=== PATIENT | male | born 1945 | race Caucasian/White ===

== ENCOUNTER 2016-12-12 21:40 | Inpatient (IN) ==
--- NOTE | 2016-12-12 22:03 | Emergency Department Note ---
Disposition Clinical Impression: Metastatic primary lung cancer, Failure to thrive Disposition: Admitted As Inpatient Condition: Good General Adult HPI - General Chief complaint: ED Shortness of Breath/Dyspnea Stated complaint: SOB,nausea,vomiting Time Seen by Provider: 12/12/16 21:53 Source: patient Limitations: no limitations - History of Present Illness Pain Scale: 6 - Related Data Home Medications Medication Instructions Recorded Confirmed Dronabinol [Marinol] 5 mg PO BID 12/13/16 12/13/16 HYDROcodone/Acet 10/325 mg [[place] 1 - 2 tab PO Q6HR PRN 12/13/16 12/13/16 10-325 mg] Ipratropium Neb [Atrovent Neb] 0.5 mg IH TID 12/13/16 12/13/16 Ondansetron [Zofran ODT] 6 mg SL Q4HR PRN 12/13/16 12/13/16 Allergies Allergy/AdvReac Type Severity Reaction Status Date / Time aspirin [From Percodan] Allergy Hallucinati Verified 12/12/16 21:42 ng Oxycodone [From Percocet] Allergy Hallucinati Verified 12/12/16 21:42 ng Past Medical History - Past Medical History Medical history: Reports: arthritis, cancer, COPD, other Surgical history: Reports: appendectomy, cataract, cholecystectomy Psychiatric history: Reports: no psych history - Social History Smoking Status: Former smoker Smokeless Tobacco Status: No Alcohol use: Reports: none Drug use: Reports: none Physical Exam - General Limitations: no limitations General appearance: alert, in no apparent distress Course Vital Signs Temperature 98.3 F 12/12/16 21:43 Pulse Rate 106 12/12/16 21:43 Respiratory Rate 18 12/12/16 21:43 Blood Pressure 106/68 12/12/16 21:43 O2 Sat by Pulse Oximetry 95 12/12/16 21:43 Temperature 98 F 12/13/16 01:15 Pulse Rate 76 12/13/16 01:15 Respiratory Rate 16 12/13/16 01:15 Blood Pressure 109/70 12/13/16 01:15 O2 Sat by Pulse Oximetry 95 12/13/16 02:00 Oxygen Delivery Oxygen Delivery Room Air Medical Decision Making - Lab Data Result diagrams: 12/12/16 22:10 12/12/16 22:10 Lab Results 12/12/16 12/12/16 Range/Units 22:10 22:10 WBC 8.0 (4.3-11.1) K/mcL RBC 4.65 (4.19-5.50) M/mcL Hgb 13.2 (12.9-16.9) g/dL Hct 40.8 (37.5-50.1) % MCV 87.7 (83.0-100.0) fL MCH 28.4 (28.0-33.3) pg MCHC 32.4 (31.6-35.5) g/dL RDW 13.5 (11.5-14.5) % Plt Count 195 (140-400) K/mcL MPV 10.5 (9.4-12.4) fL Immature Gran % 0.3 (0-4) % Seg Neutrophils % 81.1 % Lymphocytes % 8.4 % Monocytes % 8.8 % Eosinophils % 1.1 % Basophils % 0.3 % Neutrophils # 6.5 (1.6-8.9) K/mcL Lymphocytes # 0.7 (0.6-4.6) K/mcL Monocytes # 0.7 (0.0-1.3) K/mcL Eosinophils # 0.1 (0.0-0.6) K/mcL Basophils # 0.0 (0.0-0.2) K/mcL Sodium 139 (136-145) mEq/L Potassium 4.0 (3.5-4.5) mEq/L Chloride 101 (98-109) mEq/L Carbon Dioxide 29 (19-29) mEq/L BUN 33 H (8-26) mg/dL Creatinine 0.66 L (0.72-1.25) mg/dL Est GFR ( Amer) > 60 (> 60) Est GFR (Non-Af Amer) > 60 (> 60) BUN/Creatinine Ratio 50 H (6-26) Glucose 114 H (70-99) mg/dL Calculated Osmolality 296 (280-300) Calcium 9.7 (8.6-10.8) mg/dL Total Bilirubin 0.7 (0.2-1.2) mg/dL Direct Bilirubin 0.3 (0.0-0.5) mg/dL Indirect Bilirubin 0.4 (0.0-1.2) mg/dL AST 27 (5-34) Units/L ALT 30 (0-55) Units/L Alkaline Phosphatase 207 H (38-126) Units/L Serum Total Protein 7.4 (6.0-8.3) g/dL Albumin 3.4 L (3.5-5.0) g/dL Globulin 4.0 H (2.4-3.5) g/dL Albumin/Globulin Ratio 0.9 L (1.1-2.2) Lipase 64 (8-78) Units/L Attestation Statement - Attestation Attestation: I examined this patient and my medical decision-making was reviewed with the GOVERNMENT SERVICES PROFESSIONAL/PA/Advanced Practice Nurse/Resident Physician. I agree with the documented findings, disposition and treatment plan as described except to the extent set forth below. Face to face time provided Patient with a history of metastatic lung cancer currently taking Keytruda but not getting active chemotherapy presents with nausea, vomiting, dietary intolerance over the past several days. He appears thin and pale on exam
[2016-12-12] MEDS ORDERED: *HR* HYDROmorphone (PF) 1 MG/ML SYRINGE IVP ONE (22:11)
[2016-12-12] MEDS ORDERED: Ondansetron 4 MG/2 ML VIAL IVP ONE (22:11)
[2016-12-12] MEDS ORDERED: 0.9 % Sodium Chloride 1,000 ML IVC ONE (22:11)
--- NOTE | 2016-12-12 22:19 | Emergency Department Note ---
Disposition Clinical Impression: Metastatic primary lung cancer Qualifiers: Laterality: unspecified laterality Qualified Code(s): C34.90 - Malignant neoplasm of unspecified part of unspecified bronchus or lung Failure to thrive Qualifiers: Failure to thrive age range: in adult Qualified Code(s): R62.7 - Adult failure to thrive Disposition: Admitted As Inpatient Condition: Good Forms: ED Satisfaction Letter Nausea/Vomiting/Diarrhea HPI - General Chief complaint: ED Shortness of Breath/Dyspnea Stated complaint: SOB,nausea,vomiting Time Seen by Provider: 12/12/16 21:53 Source: patient Limitations: no limitations Nursing Notes Reviewed: Yes Vital Signs Reviewed: Yes - History of Present Illness HPI Narrative: 71-year-old male with a history of metastatic lung cancer presents to the ED with the chief complaint of nausea and vomiting. In July 2016 he was diagnosed with a right upper lobe cancer and a resection was performed. Just a few weeks after the surgery they found that the tumor had returned and had metastasized to the other lung for which she had a number resection. He is recently found that the cancer has metastasized into the pelvis and throughout the spine. Patient has dealt with nausea, vomiting and cachexia for the duration of his treatment. He has had worsening symptoms over the last 10 days and has not been able to keep down much nutrition. He denies any abdominal pain just nausea, vomiting and decreased appetite. He feels generally weak. He denies any new dyspnea. He denies any fevers or chills. He denies any chest pain. He reports having palpitations about a week ago but was not evaluated by a physician at that time. - Related Data Home Medications Medication Instructions Recorded Confirmed Ipratropium Neb [Atrovent Neb] 0.5 mg IH TID 10/17/16 11/20/16 Previous Rx's Medication Instructions Recorded HYDROcodone/Acet 10/325 mg [[place] 1 - 2 tab PO Q6HR PRN #90 tablet 11/27/16 10-325 mg] MethylPREDNISolone 4 mg PO DAILY #21 tab 11/30/16 [MethylPREDNISolone Dose Pack] Ondansetron [Zofran ODT] 8 mg SL Q4HR PRN #30 tab.rapdis 12/10/16 Oxycodone HCl 15 mg PO Q2H PRN #90 tablet 12/10/16 Allergies Allergy/AdvReac Type Severity Reaction Status Date / Time aspirin [From Percodan] Allergy Hallucinati Verified 12/12/16 21:42 ng Oxycodone [From Percocet] Allergy Hallucinati Verified 12/12/16 21:42 ng All systems ED: reviewed and negative except as stated. Constitutional: Denies: fever, chills Cardiovascular: Denies: chest pain Gastrointestinal: Reports: nausea, vomiting. Denies: abdominal pain, diarrhea, hematochezia Genitourinary: Denies: urgency, dysuria Musculoskeletal: Reports: back pain (Chronic with no recent change) Neurological: Reports: weakness (Generalized and not unilateral). Denies: headache Past Medical History - Past Medical History Medical history: Reports: arthritis, cancer, COPD, other Surgical history: Reports: appendectomy, cataract, cholecystectomy Psychiatric history: Reports: no psych history - Social History Smoking Status: Former smoker Smokeless Tobacco Status: No Alcohol use: Reports: none Drug use: Reports: none Physical Exam General: Cachectic appearing male but he is awake, alert, talkative and in no distress Cardiovascular: Regular rate and rhythm. S1, S2. No murmurs, rubs or gallops. Respiratory: Breath sounds are clear bilaterally without any wheezing, rales or rhonchi. He is speaking in full sentences and in no distress. No coughing. Abdomen: Abdomen is soft without guarding, rebound or rigidity. No palpable organomegaly. Normal bowel sounds throughout. No palpable hernias or masses. Eyes: Conjunctiva clear without scleral icterus HENT: Mucous membranes are slightly dry but no abnormal lesions. Neuro: He is alert and oriented 3, no motor or sensory deficits Musculoskeletal: No joint tenderness or swelling. No edema. Skin: No lesions. No diaphoresis. Normal turgor. Normal color Psych: Appropriate - General Limitations: no limitations General appearance: alert, in no apparent distress Course Course Narrative: Presents with worsening nausea, vomiting and poor nutrition. Patient has a history of metastatic lung cancer. No chemotherapy but palliative radiation. He has had no fevers, increased pain but just states his vomiting is getting worse and he feels generally weak. On exam his abdomen is soft. He is afebrile and in no distress. He appears chronically cachectic and ill. Labs including CBC, CMP, lipase are essentially unremarkable. No leukocytosis, no fever or anything to suggest infection. His BUN is elevated suggesting dehydration and he was given fluids, IV pain medication and nausea medication. Patient is feeling better but states he is too weak to go home and his confirms this. He would like to stay in the hospital for IV hydration and further discussion with the oncologist. I discussed with the on-call hospitalist, Dr. Ojeda who except for admission, no further orders at this time Patient denies any new abdominal pain. No fevers and this has bee an ongoing issue.n He had a PET scan of his chest, abdomen pelvis about a month ago where a produce department manager CT was performed and it showed some new lymph nodes involved in the pelvis but no other abnormalities. For this reason we did not repeat CT imaging at this time Vital Signs Temperature 98.3 F 12/12/16 21:43 Pulse Rate 106 12/12/16 21:43 Respiratory Rate 18 12/12/16 21:43 Blood Pressure 106/68 12/12/16 21:43 O2 Sat by Pulse Oximetry 95 12/12/16 21:43 Temperature 98.3 F 12/12/16 21:43 Pulse Rate 90 12/12/16 23:25 Respiratory Rate 18 12/12/16 23:25 Blood Pressure 120/83 12/12/16 23:25 O2 Sat by Pulse Oximetry 95 12/12/16 23:25 Oxygen Delivery Oxygen Delivery Room Air Nausea/Vomiting/Diarrhea - Lab Data Result diagrams: 12/12/16 22:10 12/12/16 22:10 Lab Results 12/12/16 12/12/16 Range/Units 22:10 22:10 WBC 8.0 (4.3-11.1) K/mcL RBC 4.65 (4.19-5.50) M/mcL Hgb 13.2 (12.9-16.9) g/dL Hct 40.8 (37.5-50.1) % MCV 87.7 (83.0-100.0) fL MCH 28.4 (28.0-33.3) pg MCHC 32.4 (31.6-35.5) g/dL RDW 13.5 (11.5-14.5) % Plt Count 195 (140-400) K/mcL MPV 10.5 (9.4-12.4) fL Immature Gran % 0.3 (0-4) % Seg Neutrophils % 81.1 % Lymphocytes % 8.4 % Monocytes % 8.8 % Eosinophils % 1.1 % Basophils % 0.3 % Neutrophils # 6.5 (1.6-8.9) K/mcL Lymphocytes # 0.7 (0.6-4.6) K/mcL Monocytes # 0.7 (0.0-1.3) K/mcL Eosinophils # 0.1 (0.0-0.6) K/mcL Basophils # 0.0 (0.0-0.2) K/mcL Sodium 139 (136-145) mEq/L Potassium 4.0 (3.5-4.5) mEq/L Chloride 101 (98-109) mEq/L Carbon Dioxide 29 (19-29) mEq/L BUN 33 H (8-26) mg/dL Creatinine 0.66 L (0.72-1.25) mg/dL Est GFR ( Amer) > 60 (> 60) Est GFR (Non-Af Amer) > 60 (> 60) BUN/Creatinine Ratio 50 H (6-26) Glucose 114 H (70-99) mg/dL Calculated Osmolality 296 (280-300) Calcium 9.7 (8.6-10.8) mg/dL Total Bilirubin 0.7 (0.2-1.2) mg/dL Direct Bilirubin 0.3 (0.0-0.5) mg/dL Indirect Bilirubin 0.4 (0.0-1.2) mg/dL AST 27 (5-34) Units/L ALT 30 (0-55) Units/L Alkaline Phosphatase 207 H (38-126) Units/L Serum Total Protein 7.4 (6.0-8.3) g/dL Albumin 3.4 L (3.5-5.0) g/dL Globulin 4.0 H (2.4-3.5) g/dL Albumin/Globulin Ratio 0.9 L (1.1-2.2) Lipase 64 (8-78) Units/L
[2016-12-12 22:38] LABS: Basophils % 0.3 %; Eosinophils % 1.1 %; Hematocrit 40.8 % (37.5-50.1); Hemoglobin 13.2 g/dL (12.9-16.9); Immature Granulocytes % 0.3 % (0-4); Lymphocytes % 8.4 %; Mean Corpuscular HGB Conc 32.4 g/dL (31.6-35.5); Mean Corpuscular Hemoglobin 28.4 pg (28.0-33.3); Mean Corpuscular Volume 87.7 fL (83.0-100.0); Mean Platelet Volume 10.5 fL (9.4-12.4); Monocytes % 8.8 %; Platelet Count 195 K/mcL (140-400); Red Blood Count 4.65 M/mcL (4.19-5.50); Red Cell Distribution Width 13.5 % (11.5-14.5); Segmented Neutrophils % 81.1 %
[2016-12-12 22:39] LABS: Eosinophils # 0.1 K/mcL (0.0-0.6); Lymphocytes # 0.7 K/mcL (0.6-4.6); Monocytes # 0.7 K/mcL (0.0-1.3); Neutrophils # 6.5 K/mcL (1.6-8.9)
[2016-12-12 22:56] LABS: Alanine Aminotransferase 30 Units/L (0-55); Albumin 3.4 g/dL (3.5-5.0); Albumin/Globulin Ratio 0.9 (1.1-2.2); Alkaline Phosphatase 207 Units/L (38-126); Aspartate Amino Transferase 27 Units/L (5-34); BUN/Creatinine Ratio 50 (6-26); Bilirubin,Direct 0.3 mg/dL (0.0-0.5); Bilirubin,Indirect 0.4 mg/dL (0.0-1.2); Bilirubin,Total 0.7 mg/dL (0.2-1.2); Blood Urea Nitrogen 33 mg/dL (8-26); Calcium 9.7 mg/dL (8.6-10.8); Carbon Dioxide 29 mEq/L (19-29); Chloride 101 mEq/L (98-109); Glucose 114 mg/dL (70-99); Lipase 64 Units/L (8-78); Osmolality,Calculated 296 (280-300); Sodium 139 mEq/L (136-145); Total Protein 7.4 g/dL (6.0-8.3); eGFR For African Americans > 60 (> 60); eGFR For Non-African Americans > 60 (> 60)
--- NOTE | 2016-12-13 03:26 | Internal Med History&Physical ---
Date of Encounter: 12/13/16 Time of Encounter: 03:26 Assessment and Plan (1) Intractable nausea and vomiting Current visit: Yes Status: Acute Possibly related to metastatic tumor burden. Will obtain X-ray KUB to exclude bowel obstruction. Treat with antiemetics IV and IV fluids; IV PPI. Qualifiers: Vomiting type: unspecified Qualified Code(s): R11.2 - Nausea with vomiting , unspecified (2) Failure to thrive Current visit: Yes Status: Acute Pt apparently lost about 6 pounds recently. Likely due to inability to keep his food down. IV antiemetics. Oncology consult / Nutrition consult. Qualifiers: Failure to thrive age range: in adult Qualified Code(s): R62.7 - Adult failure to thrive (3) COPD (chronic obstructive pulmonary disease) Current visit: Yes Status: Chronic Continue bronchodilators Qualifiers: COPD type: unspecified COPD Qualified Code(s): J44.9 - Chronic obstructive pulmonary disease, unspecified (4) Metastatic primary lung cancer Current visit: Yes Status: Chronic Oncology consult for further advice. Qualifiers: Laterality: unspecified laterality Qualified Code(s): C34.90 - Malignant neoplasm of unspecified part of unspecified bronchus or lung Internal Medicine - H&P: HPI Chief complaint: Intractable Nausea, vomiting Admitted From: Emergency Dept Plans for Post Hospital Care: Home History of present illness: Mr. Benavidez is a 71 year old male With h/o lung cancer (poorly differentiated adenocarcinoma) s/p right upper lobectomy; Metastatic disease, COPD, back pain. He reports intermittent nausea and altered taste since the Jul 2016. He is worsening symptoms over the last several days, with intractable nausea and vomiting. He is not able to keep nausea medications, food or fluids. He denies hematemesis/coffee-ground vomiting. He denies significant abdominal pain. He reports that the taste of food is altered. He apparently lost 6 pounds weight in the last week. He denies a significant shortness of breath, chest pain, fever, chills, abdominal pain, dysuria, hematuria. He was evaluated in the emergency department and admitted to the hospitalist service for further management. Past Med Surg Social Fam HX - Past Medical History Medical history: arthritis, cancer, COPD, other Psychiatric history: no psych history - Past Surgical History Surgical History: appendectomy, cataract, cholecystectomy - Social History Smoking Status: Former smoker Smokeless Tobacco Status: No Alcohol use: none Drug use: none - Additional Family History Additional family history: Family history reviewed and is noncontributory to current admission Internal Medicine - H&P: Meds Dronabinol [Marinol] 5 mg PO BID 12/13/16 [History] HYDROcodone/Acet 10/325 mg [[place] 10-325 mg] 1 - 2 tab PO Q6HR PRN 12/13/16 [ History] Ipratropium Neb [Atrovent Neb] 0.5 mg IH TID 12/13/16 [History] Ondansetron [Zofran ODT] 6 mg SL Q4HR PRN 12/13/16 [History] Allergies aspirin [From Percodan] Allergy (Verified 12/12/16 21:42) Hallucinating Oxycodone [From Percocet] Allergy (Verified 12/12/16 21:42) Hallucinating All Systems PM: A 10-system review of systems was performed and is negative for pertinent findings except as documented above in the HPI. - Constitutional Vitals: Temp Pulse Resp BP Pulse Ox 98 F 76 16 109/70 95 12/13/16 01:15 12/13/16 01:15 12/13/16 01:15 12/13/16 01:15 12/13/16 01:15 Exam: General: Not in acute distress at the time of my evaluation HEENT: Oral mucosa is moist. No conjunctival palor or scleral icterus Neck: No obvious neck swellings Lungs: Clear to auscultation Cardiac: Regular rate and rhythm. No significant murmurs Abdomen: Soft, non tender. Bowel sounds present Genitourinary: No bah catheter Neurological: Alert and oriented. No gross localizing deficits Psych: Not aggressive or agitated Extremities: no significant leg edema Skin: No generalized rash Internal Med - H&P Results - Labs CBC & Chem 7: 12/12/16 22:10 12/12/16 22:10 - Impressions ITS Impressions Chest X-Ray 12/12/16 22:13 IMPRESSION: 1. No acute cardiopulmonary abnormality. 2. Stable right upper thoracic postsurgical changes. D/ / Tyron Maher MD / Tyron Maher MD Interpreting Provider: Tyron Maher MD
[2016-12-13] MEDS ORDERED: Ondansetron 4 MG/2 ML VIAL IVP PRN (03:28)
[2016-12-13] MEDS ORDERED: *HR* Promethazine 25 MG/ML VIAL IVP PRN ×2 (03:28→14:00)
[2016-12-13] MEDS ORDERED: Naloxone 0.4 MG/ML INJ IVP PRN (03:28)
[2016-12-13] MEDS: *HR* HYDROcodone/Acet 10/325 mg TABLET PO SCH ×5 (04:06→21:26)
[2016-12-13] MEDS: 0.9 % Sodium Chloride 1,000 ML IVC SCH ×2 (04:06→17:13)
[2016-12-13 06:40] LABS: BUN/Creatinine Ratio 48 (6-26); Blood Urea Nitrogen 30 mg/dL (8-26); Calcium 8.7 mg/dL (8.6-10.8); Carbon Dioxide 29 mEq/L (19-29); Chloride 103 mEq/L (98-109); Glucose 143 mg/dL (70-99); Osmolality,Calculated 293 (280-300); Phosphorous 2.2 mg/dL (2.3-4.7); Potassium 3.6 mEq/L (3.5-4.5); Sodium 137 mEq/L (136-145); eGFR For African Americans > 60 (> 60); eGFR For Non-African Americans > 60 (> 60)
[2016-12-13] MEDS: Pantoprazole 40 MG VIAL IVP SCH (08:07)
[2016-12-13] MEDS: Ipratropium Neb 0.5 MG NEBULIZER IH SCH ×3 (11:10→22:43)
--- NOTE | 2016-12-13 14:27 | Event Note ---
Date of Encounter: 12/13/16 Time of Encounter: 10:00 Patient seen and examined earlier this morning. His was at the bedside. Patient this morning stating that his pain was controlled. He stated that he continued to have nausea but was able to eat a little bit of his breakfast. Chest x-ray negative. KUB with focal ileus to left upper quadrant, we will treat conservatively. Hypotension noted. IV fluids infusing. We will schedule Reglan and diphenhydramine. Patient also complaining of his hands being intermittently numb that has gotten progressively worse over the past month or so, concern for vitamin deficiencies, will check B12, folate, TSH. Patient is on Marinol at home however he states he is not able to take it most days secondary to severe nausea and inability to take medications. His and he are quite upset regarding the fact that he has progressively lost weight since his diagnosis in [facility]. His states that he has lost approximately 6 pounds per month and is currently losing weight at a quicker rate than before. Patient stating he pretty much sleeps all the time because he cannot eat. He states that he feels as if he is going to throw up all the time. He states even someone mentioning food is enough to make him throw up. I discussed with him possible transdermal patches to help with pain control but patient stated he was not interested in trying these. I was called back to his room at approximately 1315 because the patient had slurred speech. On examination, patient was oriented 3 but would intermittently say inappropriate comments. His speech is slurred and he is slow to answer questions. Shortly before this started, patient had IV Phenergan and he appears quite drowsy. He has no focal neurological weaknesses. No suspicion for a stroke, he appears to be having a bit of a reaction to the Phenergan. We will decrease the dose-he will need to be dosed moving forward per body weight given that he is only 51 kg. Given his ileus, we will conservatively treat and monitor closely for signs of bowel obstruction. Will also consider NG tube placement for decompression. Oncology is on board. Nutrition is on board. Patient stating that he wanted to talk to me more about CODE STATUS however he was quite drowsy during my most recent encounter with him, so I will revisit this topic when he is more alert. I have brought palliative care on board given the fact that he has lost so much weight and is clearly failure to thrive. Appreciate their input. ITS Impressions Chest X-Ray 12/12/16 22:13 IMPRESSION: 1. No acute cardiopulmonary abnormality. 2. Stable right upper thoracic postsurgical changes. D/ / Tyron Maher MD / Tyron Maher MD Interpreting Provider: Tyron Maher MD X-Ray 12/13/16 06:32 IMPRESSION: Overall nonspecific bowel gas pattern with several mildly distended loops of small bowel within the left upper quadrant. This could represent a focal ileus. D/ / 12/13/2016 08:39:58 Fritz Villalobos MD / shonda Interpreting Provider: Fritz Villalobos MD
--- NOTE | 2016-12-13 14:53 | Electrocardiograph Report ---
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
--- NOTE | 2016-12-13 16:02 | Palliative - Consult Note ---
Date of Encounter: 12/13/16 Time of Encounter: 14:30 - Assessment and Plan (1) Cancer associated pain Current Visit: Yes Status: Acute Assessment and plan: The patient describes a great deal of this pain as being sharp burning type pain which is generally associated with neurogenic pain. The patient does have painful nodules from the metastases from his cancer. I believe there may be a very significant neurogenic component to the pain. I recommend continuing the patient's [place] as the patient is now taking by mouth, the patient has a very bad reaction oxycodone obviously avoid this. I would add in gabapentin and a Lidoderm patch. For the gabapentin and the Lidoderm patch. Although I do not believe the patient needs IV medication at this time I would give low-dose morphine he is unable to take by mouth and I will write for this as well. Discussed this with the hospitalist team. (2) Constipation Current Visit: Yes Status: Acute Assessment and plan: Bowel regimen has begun with senna S 2 twice a day. Qualifiers: Constipation type: slow transit constipation Qualified Code(s): K59.01 - Slow transit constipation (3) Goals of care, counseling/discussion Current Visit: Yes Status: Acute Assessment and plan: The patient requests to be DNR comfort care arrest. He is okay with short-term intubation and has discussed this with his who he nominate is his medical power of licensing officer. His goals of care are to continue therapy for his cancer. He is starting immunotherapy and is hopeful that this will work for him. He understands were hospice fits in the picture, and will avail himself of it at that point in time when he feels it is necessary. In the meantime the patient feels his nausea could be kept under decent control he would be able to enjoy his life much better. The patient is used to being extremely active helping other people with yard work and getting his yard taking care of for the last month month and a half this is been very difficult secondary to feeling very weak rundown and nauseated. (4) Intractable nausea and vomiting Current Visit: Yes Status: Acute Assessment and plan: He patient has responded extremely well to Phenergan, however he did have a very pronounced side effect of sedation from it. I recommend that we cut it back to a lower dose and have already discussed this with the hospitalist team. This will be made available on a when necessary basis, with the patient on scheduled Reglan with Benadryl and a low dose of Ativan. Purpose for the Reglan is to try to stimulate the bowel and get it moving into proper direction as well as decrease the nausea. Ativan is added in for cerebral fluence on the vomiting center to the fact the patient has a great deal of sensory nausea. Where the nausea and vomiting are triggered by sensory input. Asked for the Ativan to be held in the event of sedation. Discussed this also with the hospitalist team. Qualifiers: Vomiting type: unspecified Qualified Code(s): R11.2 - Nausea with vomiting , unspecified (5) Metastatic primary lung cancer Current Visit: Yes Status: Chronic Assessment and plan: The patient is currently getting therapy through the 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 for this and wishes to continue to do so. Qualifiers: Laterality: unspecified laterality Qualified Code(s): C34.90 - Malignant neoplasm of unspecified part of unspecified bronchus or lung Palliative-CN HPI - Data of Consult Patient: new to practice Requesting Physician: Rosa Peters Primary Care Provider: Wade Bull MD - Consult Narrative Palliative Care/Comfort Measures: Palliative care Reason for consult: Goals of care, CODE STATUS and assistance with symptom control specifically History of present illness: Mr. Benavidez is a 71 year old male Diagnosed with lung cancer in July of this year underwent surgery Remy however despite us if care right upper lobe lobectomy should has only metastatic cancer with a history of COPD as well as back pain. Cancer is poorly differentiated carcinoma. Patient has been noticing intermittent episodes of nausea and altered taste ever since the tumor was discovered. Of late he has been having a really hard time with nausea and vomiting. He states that different odors and even sights will set off his nausea. He is able to keep his meds down [place] associated with marijuana seems to help. (Of note dronabinol has not had the effect on him and that actual marijuana has had) he came in the emergency department complaining of nausea and vomiting without keeping anything down for approximately the last week. At any significant abdominal pain, although he does complain of a knot feeling in his belly. The patient does describe pain especially off nodules in his skin is being very burning, electric stabbing at times. At its worse it to 10 over 10 with people pressing on it or him being in certain positions sometimes positional change we will make a difference to it. The pain is worse around these cutaneous nodules. Again pain is very oftentimes burning or sharp and electric in nature. Believe by medication specifically [place] and marijuana. The patient is allergic to she code on which causes hallucinations. As already noted the patient is having a great deal of trouble with nausea and vomiting. He is also having trouble with constipation. Patient does have a good appetite, however this has been curbed by his nausea. As noted above. Patient has no other symptoms at this time. CC: Rosa Peters Nausea and vomiting Past Med Surg Social Fam HX - Past Medical History Medical history: arthritis, cancer, COPD, other Psychiatric history: no psych history - Past Surgical History Surgical History: appendectomy, cataract, cholecystectomy - Social History Smoking Status: Former smoker Smokeless Tobacco Status: No Alcohol use: none Drug use: none Medications and Allergies Dronabinol [Marinol] 5 mg PO BID 12/13/16 [History] HYDROcodone/Acet 10/325 mg [[place] 10-325 mg] 1 - 2 tab PO Q6HR PRN 12/13/16 [ History] Ipratropium Neb [Atrovent Neb] 0.5 mg IH TID 12/13/16 [History] Allergies aspirin [From Percodan] Allergy (Verified 12/12/16 21:42) Hallucinating Oxycodone [From Percocet] Allergy (Verified 12/12/16 21:42) Hallucinating - Constitutional Constitutional ROS PAL: decreased appetite (Secondary to nausea.), lethargy, weight loss - EENT Eyes: no discharge, no pain Ears: no ear discharge, no ear pain Ears, nose, mouth, throat: no mouth pain, no nasal congestion, no neck pain, no nose pain - Cardiovascular Cardiovascular ROS: no chest pain, no chest pain at rest, no chest pain with activity, no diaphoresis, no dyspnea on exertion - Respiratory Respiratory: no cough, no dyspnea, no hemoptysis - Gastrointestinal Gastrointestinal: constipation, nausea, vomiting, no diarrhea - Genitourinary Genitourinary ROS male: no urinary frequency, no urinary hesitancy, no urinary incontinence - Musculoskeletal Musculoskeletal ROS IM: arthralgias, back pain - Integumentary ROS Integumentary: skin pain, no skin ulcer, no sores - Neurological Neurological ROS: no behavioral changes, no burning sensations, no disequilibrium, no dizziness, no focal weakness - Psychiatric Psychiatric general PM: change in appetite, no homicidal ideation, no hopelessness, no suicidal ideation - Endocrine Endocrine IM: as per HPI, other Palliative Care-Exam - Constitutional Vitals: Temp Pulse Resp BP Pulse Ox 97.6 F 82 16 107/67 95 12/13/16 15:30 12/13/16 15:30 12/13/16 15:30 12/13/16 15:30 12/13/16 15:30 General appearance: Present: no acute distress, thin - Head Head Exam: Present: atraumatic, normal inspection - Eye Eye exam: Present: EOMI, normal appearance, PERRL - ENT ENT exam: Present: mucous membranes moist - Respiratory Respiratory exam: Present: decreased breath sounds - Cardiovascular Cardiovascular exam: Present: RRR - GI/Abdominal Exam GI/Abdominal exam: Present: normal bowel sounds, soft. Absent: tenderness - Extremities Exam Extremities exam: Present: normal inspection. Absent: pedal edema, tenderness - Neurological Exam Neurological exam: Present: alert, oriented X3 - Psychiatric Psychiatric exam: Present: normal affect, normal mood. Absent: agitated, anxious - Skin Skin exam: Present: dry, warm (Tender nodules noted on his back and side.) Internal Medicine - CN: Reslt - Labs CBC & Chem 7: 12/12/16 22:10 12/13/16 05:57 Labs: BMP 12/13/16 05:57 Sodium 137 Potassium 3.6 Chloride 103 Carbon Dioxide 29 BUN 30 H Creatinine 0.62 L Glucose 143 H Calcium 8.7 - Impressions Impressions KUB X-Ray 12/13/16 06:32 IMPRESSION: Overall nonspecific bowel gas pattern with several mildly distended loops of small bowel within the left upper quadrant. This could represent a focal ileus. D/ / 12/13/2016 08:39:58 Fritz Villalobos MD / [facility] [email or web address] Interpreting Provider: Fritz Villalobos MD Consult Discharge Plan - Plan Referrals: Wade Bull MD [Primary Care Provider] - Palliative Quality Palliative Quality: Screen for Code Status: Yes, Screen for Goals of Care: Yes, Screen for Pain: Yes, If Pain Regimen Started, Initiate Bowel Regimen: Yes, Screen for Nausea/Vomitting: Yes Code Status: 12/13/16 03:28 Resuscitation Status: Active [RES] Routine Comment: Resuscitation Status: Full Code Resuscitation Status: Active [RES] Routine Resuscitation Status: DNR-Comfort Care-Arrest Comment: short term tube, ok no trach or peg
[2016-12-13] MEDS: Metoclopramide 10 MG/2 ML VIAL IVP SCH (17:13)
--- NOTE | 2016-12-13 20:05 | Oncology Inp Consult Note ---
<Maryam Lujan E - Last Filed: 12/13/16 22:08> Date of Encounter: 12/13/16 Time of Encounter: 20:02 - Data of Consult Patient: known to practice within the last 3 years Consult date: 12/13/16 Requesting Physician: Rosa Peters Primary Care Provider: Wade Bull MD - Consult Narrative Reason for consult: lung cancer intractable nausea and vomiting History of present illness: Mr. Benavidez is a 71 year old male with a past medical history of recurrent metastatic lung cancer. He is currently being treated by Dr. Vigil. Most recently on 12/10/2016 he received Keytruda. From 11/27/2016 through 2016 he received radiation to the left sub-scapular and left upper back. His oncology history can be reviewed as per oncology clinic note of 11/20/2016. On 12/13/2016 he presented to the emergency room with intractable nausea and vomiting. He states that he has had episodes of nausea since his lung surgery but it has gradually worsening. His states he has not eaten to days. She felt like she was watching him before her eyes. Yesterday he was not able to keep anything down. He also states he felt like he had a knot in his stomach. he also has altered taste with the textures of foods also causing nausea. At this time nausea vomiting is being controlled with Phenergan, zofran, marinol and reglan. He is tolerating liquids. A KUB did indicate possible focal ileus. Past Med Surg Social Fam HX - Past Medical History Medical history: arthritis, cancer, COPD, other Psychiatric history: no psych history - Past Surgical History Surgical History: appendectomy, cataract, cholecystectomy - Social History Smoking Status: Former smoker Smokeless Tobacco Status: No Alcohol use: none Drug use: none Medications and Allergies Dronabinol [Marinol] 5 mg PO BID 12/13/16 [History] HYDROcodone/Acet 10/325 mg [[place] 10-325 mg] 1 - 2 tab PO Q6HR PRN 12/13/16 [ History] Ipratropium Neb [Atrovent Neb] 0.5 mg IH TID 12/13/16 [History] Allergies aspirin [From Percodan] Allergy (Verified 12/12/16 21:42) Hallucinating Oxycodone [From Percocet] Allergy (Verified 12/12/16 21:42) Hallucinating All systems: reviewed and no additional remarkable complaints except as stated Constitutional: Present: fatigue Additional comments: denies shortness of breath Additional comments: denies abdominal pain,bloating. Is passing gas,no nausea at this time Additional comments: soreness in lesion near cervical spine Oncology - Exam - Constitutional Vitals: Temp Pulse Resp BP Pulse Ox 98.1 F 80 16 95/52 95 12/13/16 19:27 12/13/16 19:27 12/13/16 19:27 12/13/16 19:27 12/13/16 19:27 General appearance: cooperative, thin - Head Head exam: Present: normocephalic - Neck Neck exam: Present: tenderness Additional comments: mass posterior neck - Respiratory Respiratory exam: Present: CTAB - Cardiovascular Cardiovascular exam: Present: RRR - GI/Abdominal GI/Abdominal exam: Present: soft Additional comments: nontenderness - Extremities Exam Extremities exam: Present: normal inspection - Back Exam Back exam: Present: vertebral tenderness (left upper thorax tenderness) - Psychiatric Psychiatric exam: Present: normal affect Oncology - Results - Labs Labs: [facility] 12/13/16 05:57 Sodium 137 Potassium 3.6 Chloride 103 Carbon Dioxide 29 BUN 30 H Creatinine 0.62 L Glucose 143 H Calcium 8.7 Consult Discharge Plan - Plan Referrals: Wade Bull MD [Primary Care Provider] - <Gerardo Vigil - Last Filed: 12/14/16 08:51> Date of Encounter: 12/14/16 - Data of Consult Requesting Physician: Rosa Peters Primary Care Provider: Wade Bull MD - Consult Narrative History of present illness: Mr. Benavidez is a 71 year old male Oncology - Exam - Constitutional Vitals: Temp Pulse Resp BP Pulse Ox 98.0 F 76 14 102/64 93 12/14/16 07:49 12/14/16 07:49 12/14/16 07:49 12/14/16 07:49 12/14/16 07:49 Oncology - Results - Labs Labs: [facility] 12/14/16 04:52 Sodium 138 Potassium 4.1 Chloride 105 Carbon Dioxide 25 BUN 15 D Creatinine 0.65 L Glucose 79 Calcium 9.0 - Attending Attestation I saw and personally examined Mr. Almeida at his bedside today and reviewed the chart for details of ongoing care by hospital team. I verified/agree with the history and physical exam findings documented by Delia Lujan CURBER above. Patient is currently hospitalist for uncontrolled pain and intractable nausea and vomiting due to his underlying malignancy. For his recurrent lung cancer: He is on immunotherapy with keytruda every 3 weeks and completed his first cycle of treatment about a week ago. We discussed options for management going forward and he now has a DNR status in place which I think is very reasonable given the incurable nature of his malignancy. He wants to continue antineoplastic therapy and reevaluate his option/decision based on his disease status. We'll plan on obtaining a response assessment imaging after 2 cycles of treatment. Palliative care is following for nausea and vomiting as well as uncontrolled pain. I reviewed Dr. Wilson's most recent office report and appreciate his input. Pain is controlled with his current regimen. He is not having any nausea or vomiting at time of that evaluation and is able to tolerate by mouth intake. KUB x-ray was some concern about focal ileus in left upper quadrant. This is being managed supportively with a bowel regimen. I think is very reasonable. We'll follow along with you while in-house and be happy to answer involvement oncologic questions that may arise. Once patient is medically optimal for discharge, we'll arrange for outpatient follow-up for ongoing management of his lung cancer. Thanks for allowing me to see the patient while in-house.
[2016-12-13] MEDS: Gabapentin 300 MG CAPSULE PO SCH (21:26)
[2016-12-13] MEDS: Sennosides/Docusate Sodium TABLET PO SCH (21:26)
[2016-12-13] MEDS: *HR* LORazepam 2 MG/ML VIAL IVP SCH (21:33)
[2016-12-14] MEDS: Metoclopramide 10 MG/2 ML VIAL IVP SCH ×5 (00:57→23:57)
[2016-12-14] MEDS: *HR* HYDROcodone/Acet 10/325 mg TABLET PO SCH ×2 (00:58→04:54)
[2016-12-14 05:30] LABS: % Iron Saturation 14 % (20-55); BUN/Creatinine Ratio 23 (6-26); Carbon Dioxide 25 mEq/L (19-29); Chloride 105 mEq/L (98-109); Glucose 79 mg/dL (70-99); Iron 30 mcg/dL (65-175); Osmolality,Calculated 286 (280-300); Potassium 4.1 mEq/L (3.5-4.5); Sodium 138 mEq/L (136-145); Transferrin 156 mg/dL (174-364); eGFR For African Americans > 60 (> 60); eGFR For Non-African Americans > 60 (> 60)
[2016-12-14 05:32] LABS: Blood Urea Nitrogen 15 mg/dL (8-26)
[2016-12-14 05:43] LABS: Ferritin 227 ng/ml (22-275)
[2016-12-14] MEDS: 0.9 % Sodium Chloride 1,000 ML IVC SCH ×2 (05:52→17:42)
[2016-12-14] MEDS: *HR* HYDROcodone/Acet 10/325 mg TABLET PO PRN ×2 (05:53→18:44)
[2016-12-14 05:59] LABS: Folate 8.9 ng/mL (7.0-31.4)
[2016-12-14 07:27] LABS: Thyroid Stimulating Hormone 0.257 mcIU/mL (0.350-4.840)
[2016-12-14] MEDS: Sennosides/Docusate Sodium TABLET PO SCH ×2 (07:37→20:59)
[2016-12-14] MEDS: Pantoprazole 40 MG VIAL IVP SCH (07:37)
[2016-12-14] MEDS: *HR* LORazepam 2 MG/ML VIAL IVP SCH ×3 (07:38→20:59)
[2016-12-14] MEDS: Ipratropium Neb 0.5 MG NEBULIZER IH SCH ×3 (10:20→20:27)
[2016-12-14 14:12] LABS: Triiodothyronine (T3) Free 2.37 pg/mL (1.71-3.71)
--- NOTE | 2016-12-14 17:17 | Palliative Progress Note ---
Date of Encounter: 12/14/16 Time of Encounter: 17:15 - Assessment and plan (1) Intractable nausea and vomiting Current Visit: Yes Status: Acute Assessment and plan: Patient now tolerating oral intake and medications. Continue with current treatment plan and transition to oral medications tomorrow. Qualifiers: Vomiting type: unspecified Qualified Code(s): R11.2 - Nausea with vomiting , unspecified (2) Cancer associated pain Current Visit: Yes Status: Acute Assessment and plan: Spouse reports improvement of pain and he is able to tolerate physical activity. Gabapentin improving neuropathic pain. (3) Constipation Current Visit: Yes Status: Acute Assessment and plan: Reglan for nausea. Senna BID. Qualifiers: Constipation type: slow transit constipation Qualified Code(s): K59.01 - Slow transit constipation (4) Metastatic primary lung cancer Current Visit: Yes Status: Chronic Qualifiers: Laterality: unspecified laterality Qualified Code(s): C34.90 - Malignant neoplasm of unspecified part of unspecified bronchus or lung - Time Spent With Patient Total time spent is greater than 50% in coordination of care (as documented) at patient's floor/unit and/or counseling patient: - Subjective Interval history: Patient resting with eyes closed. Spouse reports great improvement in nausea/ vomiting and he has been able to tolerate some food. - Constitutional Vitals: Abnormal lab results Creatinine 0.65 mg/dL (0.72-1.25) L 12/14/16 04:52 Phosphorus 2.2 mg/dL (2.3-4.7) L 12/13/16 05:57 Iron 30 mcg/dL (65-175) L 12/14/16 04:52 % Saturation 14 % (20-55) L 12/14/16 04:52 Transferrin 156 mg/dL (174-364) L 12/14/16 04:52 Alkaline Phosphatase 207 Units/L (38-126) H 12/12/16 22:10 Albumin 3.4 g/dL (3.5-5.0) L 12/12/16 22:10 Globulin 4.0 g/dL (2.4-3.5) H 12/12/16 22:10 Albumin/Globulin Ratio 0.9 (1.1-2.2) L 12/12/16 22:10 Prealbumin 13.0 mg/dL (18.0-45.0) L 12/14/16 04:52 TSH 0.257 mcIU/mL (0.350-4.840) L 12/14/16 04:52 Exam: 71 year old male, appearing chronically ill. - Respiratory Respiratory exam: Absent: accessory muscle use, respiratory distress - Extremities Exam Extremities exam: Present: normal inspection - Neurological Exam Neurological exam: Present: no focal deficits - Psychiatric Psychiatric exam: Absent: agitated, anxious - Skin Skin exam: Present: dry, warm Palliative Quality Palliative Quality: Screen for Code Status: Yes, Screen for Goals of Care: Yes, Screen for Pain: Yes, If Pain Regimen Started, Initiate Bowel Regimen: Yes, Screen for Nausea/Vomitting: Yes - Labs CBC & Chem 7: 12/12/16 22:10 12/14/16 04:52 Consult Discharge Plan - Plan Referrals: Wade Bull MD [Primary Care Provider] - 12/24/16 1:20 pm
--- NOTE | 2016-12-14 18:02 | Internal Med Progress Note ---
Date of Encounter: 12/14/16 Time of Encounter: 10:30 - Assessment and plan (1) Intractable nausea and vomiting Current Visit: Yes Status: Acute Assessment and plan: Patient's nausea and vomiting has been controlled since admission. He has responded well to Phenergan. His by mouth intake has improved drastically over the past couple days. His spirits are higher and he is less pale. Plan is to transition him over to by mouth medications over this weekend. He will need to have his nausea, vomiting, and pain controlled with by mouth medications before he can be discharged. Qualifiers: Vomiting type: unspecified Qualified Code(s): R11.2 - Nausea with vomiting , unspecified (2) Failure to thrive Current Visit: Yes Status: Acute Assessment and plan: See prior note for intractable nausea and vomiting (3) Metastatic primary lung cancer Current Visit: Yes Status: Chronic Assessment and plan: Oncology on board. Appreciate their recommendations. Focus at this time is on controlling his nausea and vomiting. Qualifiers: Laterality: unspecified laterality Qualified Code(s): C34.90 - Malignant neoplasm of unspecified part of unspecified bronchus or lung (4) COPD (chronic obstructive pulmonary disease) Current Visit: Yes Status: Chronic Assessment and plan: No acute exacerbation. Patient denies shortness of breath above his norm. Qualifiers: COPD type: unspecified COPD Qualified Code(s): J44.9 - Chronic obstructive pulmonary disease, unspecified (5) Cancer associated pain Current Visit: Yes Status: Acute Assessment and plan: His pain has been controlled up to this point. Plan is to transition him to by mouth medications starting tomorrow and to control his pain, nausea and vomiting with by mouth medications before he can be discharged. (6) Constipation Current Visit: Yes Status: Acute Assessment and plan: Reglan and tari, will monitor Qualifiers: Constipation type: slow transit constipation Qualified Code(s): K59.01 - Slow transit constipation (7) Goals of care, counseling/discussion Current Visit: Yes Status: Acute Assessment and plan: Palliative care has been on board throughout this admission. Patient is now a DNR CCA. Appreciate palliative care recommendations. (8) Recurrent non-small cell lung cancer Current Visit: No Status: Chronic (9) Protein-calorie malnutrition, severe Current Visit: Yes Status: Acute Assessment and plan: Patient's by mouth intake has improved greatly since admission. Nutrition is on board will continue to supplement with Ensure Plus 3 times a day with meals (10) Ileus Current Visit: Yes Status: Acute Assessment and plan: Low suspicion for bowel obstruction. We will continue to monitor. He is tolerating a regular diet at this time and his constipation is being addressed - Subjective Interval history: Patient seen and examined. On examination, patient sitting upright in bed. He and his state that he is feeling much better. He is eating a lot more than he has over the past several months. His pain is currently controlled and he currently denies any nausea. - Constitutional Vitals: Temp Pulse Resp BP Pulse Ox 98.1 F 81 16 105/66 95 12/14/16 14:57 12/14/16 14:57 12/14/16 15:37 12/14/16 14:57 12/14/16 15:37 General appearance: Present: cachectic, A&O X 3, pleasant, no acute distress, answers questions appropriately - Head Head exam: Present: atraumatic, normocephalic - Eye Eye exam: Present: PERRL, conjuntiva pink, sclera anicteric Pupils: Present: PERRL - Neck Neck exam general surgery: Present: trachea midline. Absent: lymphadenopathy, supple - Respiratory Respiratory exam: Present: decreased breath sounds. Absent: accessory muscle use, rales, respiratory distress, rhonchi, wheezes - Cardiovascular Cardiovascular exam: Present: RRR, +S1, +S2. Absent: diastolic murmur, gallop, rubs, systolic murmur - GI/Abdominal GI/Abdominal exam: Present: normal bowel sounds, soft, no peritoneal signs. Absent: distended, tenderness - Extremities Exam Extremities exam: Present: warm, radial pulses palpable and symetrical. Absent : calf tenderness, cyanotic, pedal edema - Neurological Exam Neurological exam: Present: alert, CN II-XII intact, oriented X3, no focal deficits, strengths equal and symetr throughout. Absent: pronater drift, facial droop, speech deficit - Skin Skin exam: Present: dry, intact, pallor (less pale than yesterdya), warm Internal Medicine: Result - Labs CBC & Chem 7: 12/12/16 22:10 12/14/16 04:52 Consult Discharge Plan - Plan Referrals: Wade Bull MD [Primary Care Provider] - 12/24/16 1:20 pm
[2016-12-14] MEDS: Gabapentin 300 MG CAPSULE PO SCH (20:59)
[2016-12-15] MEDS: 0.9 % Sodium Chloride 1,000 ML IVC SCH ×2 (06:09→21:08)
[2016-12-15] MEDS: Metoclopramide 10 MG/2 ML VIAL IVP SCH (06:11)
[2016-12-15] MEDS: *HR* Enoxaparin 40 MG/0.4 ML SYRINGE SQ SCH (06:11)
[2016-12-15] MEDS: *HR* LORazepam 2 MG/ML VIAL IVP SCH (08:25)
[2016-12-15] MEDS: Sennosides/Docusate Sodium TABLET PO SCH ×2 (08:25→21:01)
[2016-12-15] MEDS: Pantoprazole 40 MG VIAL IVP SCH (08:27)
[2016-12-15] MEDS: Ipratropium Neb 0.5 MG NEBULIZER IH SCH ×3 (08:39→20:00)
--- NOTE | 2016-12-15 09:28 | Oncology Inp Progress Note ---
Date of Encounter: 12/15/16 Time of Encounter: 09:30 (1) Metastatic primary lung cancer Current Visit: Yes Status: Chronic Assessment and plan: Recently completed palliative XRT to scapula earlier this month and is to continue keytruda as an outpatient. Further outpatient care per Dr. Vigil. Qualifiers: Laterality: unspecified laterality Qualified Code(s): C34.90 - Malignant neoplasm of unspecified part of unspecified bronchus or lung (2) Intractable nausea and vomiting Current Visit: Yes Status: Acute Assessment and plan: Controlled with current regimen of marinol/reglan/phenergan/zofran. Encouraged continued increase in po intake. Transitioning to oral cocktail today. Qualifiers: Vomiting type: unspecified Qualified Code(s): R11.2 - Nausea with vomiting , unspecified (3) Cancer associated pain Current Visit: Yes Status: Acute Assessment and plan: Controlled on current regimen of [place] and gabapentin. I believe pain will continue to improve as XRT effect takes hold. Appreciate hospitalist and palliative assistance. (4) Dysuria Current Visit: Yes Status: Acute Assessment and plan: Emprically start Cipro 500 bid orally. Check UA, micro and culture. Oncology: Subj Interval history: Feeling much better last 2 days. Pain and nausea are controlled. Afebrile but having urinary frequency and dysuria. Worried about possible UTI. Marinol has helped a bit with appetite, but other methods have worked better, and this was discussed today. - Constitutional Vitals: Vital Signs Temp Pulse Resp BP Pulse Ox 12/15/16 08:41 18 94 12/15/16 06:54 97.7 F 75 17 122/73 96 12/15/16 03:22 97.5 F L 67 14 116/79 95 12/14/16 23:06 98.1 F 79 15 107/66 95 12/14/16 19:03 98.3 F 86 15 106/69 96 12/14/16 15:37 16 95 12/14/16 14:57 98.1 F 81 14 105/66 97 12/14/16 10:41 98.1 F 88 16 95/60 96 12/14/16 10:20 16 96 Intake and Output 12/15/16 12/15/16 12/15/16 00:59 08:59 16:59 Intake Total 1650 / 1650 1000 / 1000 Output Total 900 / 900 Balance 1650 / 1650 100 / 100 Intake: IV Fluids 1000 / 1000 1000 / 1000 0.9 % Sodium Chloride 1, 1000 / 1000 1000 / 1000 000 ML @ 80 mls/hr IVC . [id number] TATO Rx#: [id number] Oral 650 / 650 Output: Urine 900 / 900 Other: Meal Dinner Percent of Meal Consumed 5% Weight 56.245 kg Patient Weight 12/16/16 00:59 Weight 56.245 kg - Head Head exam: Present: atraumatic, normal inspection, normocephalic - Eye Eye exam: Present: conjuntiva pink, sclera anicteric - ENT ENT exam: Present: mucous membranes moist, normal oropharynx - Neck Neck exam: Present: full ROM, normal inspection - Respiratory Respiratory exam: Present: CTAB - Cardiovascular Cardiovascular exam: Present: RRR - GI/Abdominal GI/Abdominal exam: Present: normal bowel sounds, soft - Extremities Exam Extremities exam: Present: normal inspection Oncology: Obj Data - Labs CBC & Chem 7: 12/12/16 22:10 12/14/16 04:52 Consult Discharge Plan - Plan Referrals: Wade Bull MD [Primary Care Provider] - 12/24/16 1:20 pm
--- NOTE | 2016-12-15 11:25 | Palliative Progress Note ---
Date of Encounter: 12/15/16 Time of Encounter: 11:00 - Assessment and plan (1) Intractable nausea and vomiting Current Visit: Yes Status: Acute Assessment and plan: Will transition Reglan/Ativan/Phenergan to po today and see if he can tolerate. Will make Benadryl PRN. He states that he feels much better and eating some Qualifiers: Vomiting type: unspecified Qualified Code(s): R11.2 - Nausea with vomiting , unspecified (2) Cancer associated pain Current Visit: Yes Status: Acute Assessment and plan: Continue [place] as ordered. Utilized x2 last 24 hours. (3) Constipation Current Visit: Yes Status: Acute Assessment and plan: BM x2 yesterdat . Monitor Qualifiers: Constipation type: slow transit constipation Qualified Code(s): K59.01 - Slow transit constipation - Time Spent With Patient Total time spent is greater than 50% in coordination of care (as documented) at patient's floor/unit and/or counseling patient: 25 - 35 minutes - Subjective Interval history: Patient drowsy but awakens easily, at bedside. Nausea managed well at this time, ate lyman/some eggs for breakfast. Denies pain at present. Oncology visit noted and chart reviewed. - Constitutional Vitals: Abnormal lab results Creatinine 0.65 mg/dL (0.72-1.25) L 12/14/16 04:52 Phosphorus 2.2 mg/dL (2.3-4.7) L 12/13/16 05:57 Iron 30 mcg/dL (65-175) L 12/14/16 04:52 % Saturation 14 % (20-55) L 12/14/16 04:52 Transferrin 156 mg/dL (174-364) L 12/14/16 04:52 Alkaline Phosphatase 207 Units/L (38-126) H 12/12/16 22:10 Albumin 3.4 g/dL (3.5-5.0) L 12/12/16 22:10 Globulin 4.0 g/dL (2.4-3.5) H 12/12/16 22:10 Albumin/Globulin Ratio 0.9 (1.1-2.2) L 12/12/16 22:10 Prealbumin 13.0 mg/dL (18.0-45.0) L 12/14/16 04:52 TSH 0.257 mcIU/mL (0.350-4.840) L 12/14/16 04:52 General appearance: Present: no acute distress - Respiratory Respiratory exam: Present: decreased breath sounds, CTAB - Cardiovascular Cardiovascular exam: Present: +S1, +S2 - GI/Abdominal GI/Abdominal exam: Present: normal bowel sounds, soft - Additional comments: Voids per urinal - Extremities Exam Extremities exam: Present: normal capillary refill, normal inspection - Neurological Exam Neurological exam: Present: alert, oriented X3, strengths equal and symetr throughout - Skin Skin exam: Present: dry, pallor, warm Palliative Quality Palliative Quality: Screen for Code Status: Yes, Screen for Goals of Care: Yes, Screen for Pain: Yes, If Pain Regimen Started, Initiate Bowel Regimen: Yes, Screen for Nausea/Vomitting: Yes - Labs CBC & Chem 7: 12/12/16 22:10 12/14/16 04:52 Consult Discharge Plan - Plan Referrals: Wade Bull MD [Primary Care Provider] - 12/24/16 1:20 pm
[2016-12-15] MEDS: *HR* LORazepam 0.5 MG TABLET PO SCH ×2 (14:31→21:00)
[2016-12-15 14:35] LABS: Bilirubin,Urine Negative (Negative); Blood,Urine Negative (Negative); Clarity,Urine Clear (Clear); Color,Urine Yellow (Yellow); Glucose,Urine (UA) Normal (Normal); Ketones,Urine Negative (Negative); Leukocyte Esterase,Urine Negative (Negative); Nitrite,Urine Negative (Negative); Protein,Urine Negative (Neg-Trace); Specific Gravity,Urine 1.013 (1.010-1.025); Urobilinogen,Urine Normal (Normal)
--- NOTE | 2016-12-15 15:57 | Internal Med Progress Note ---
Date of Encounter: 12/15/16 Time of Encounter: 09:30 - Assessment and plan (1) Dysuria Current Visit: Yes Status: Acute Assessment and plan: Urinalysis negative. Unclear causation. We will perform physical examination tomorrow, unclear whether or not he is circumcised and whether or not he has a topical rash. If no rashes present, we will consider Pyridium. No indication for antibiotics at this time. (2) Intractable nausea and vomiting Current Visit: Yes Status: Resolved Assessment and plan: Patient's nausea and vomiting has been controlled since admission. He has responded well to Phenergan. His by mouth intake has improved drastically over the past couple days. His spirits are higher and he is less pale. Plan is to transition him over to by mouth medications over this weekend. He will need to have his nausea, vomiting, and pain controlled with by mouth medications before he can be discharged. Both palliative care and oncology are on board. Also, will scale back his IV fluids and encourage him to drink more in anticipation for discharge. Tentatively scheduled for Saturday or Saturday pending clinical outcomes. Qualifiers: Vomiting type: unspecified Qualified Code(s): R11.2 - Nausea with vomiting , unspecified (3) Failure to thrive Current Visit: Yes Status: Acute Assessment and plan: See prior note for intractable nausea and vomiting (4) Metastatic primary lung cancer Current Visit: Yes Status: Chronic Assessment and plan: Oncology on board. Appreciate their recommendations. Focus at this time is on controlling his nausea and vomiting. Qualifiers: Laterality: unspecified laterality Qualified Code(s): C34.90 - Malignant neoplasm of unspecified part of unspecified bronchus or lung (5) COPD (chronic obstructive pulmonary disease) Current Visit: Yes Status: Chronic Assessment and plan: No acute exacerbation. Patient denies shortness of breath above his norm. Qualifiers: COPD type: unspecified COPD Qualified Code(s): J44.9 - Chronic obstructive pulmonary disease, unspecified (6) Cancer associated pain Current Visit: Yes Status: Acute Assessment and plan: His pain has been controlled up to this point. Plan is to transition him to by mouth medications today and to control his pain, nausea and vomiting with by mouth medications before he can be discharged. (7) Constipation Current Visit: Yes Status: Acute Assessment and plan: Reglan and senna, had 2 bowel movements yesterday Qualifiers: Constipation type: slow transit constipation Qualified Code(s): K59.01 - Slow transit constipation (8) Goals of care, counseling/discussion Current Visit: Yes Status: Acute Assessment and plan: Palliative care has been on board throughout this admission. Patient is now a DNR CCA. Appreciate palliative care recommendations. (9) Recurrent non-small cell lung cancer Current Visit: No Status: Chronic (10) Protein-calorie malnutrition, severe Current Visit: Yes Status: Acute Assessment and plan: Patient's by mouth intake has improved greatly since admission. Nutrition is on board will continue to supplement with Ensure Plus 3 times a day with meals (11) Ileus Current Visit: Yes Status: Acute Assessment and plan: Low suspicion for bowel obstruction. We will continue to monitor. He is tolerating a regular diet at this time and he had 2 bowel movements yesterday - Subjective Interval history: Patient seen and examined. On examination, patient sitting upright in bed. He is alert and oriented 3 and states that his pain is controlled. He states that he is eating well without nausea or vomiting. His is at the bedside and states that she is very pleased with his progress thus far. - Constitutional Vitals: Temp Pulse Resp BP Pulse Ox 98.2 F 92 17 94/60 95 12/15/16 15:48 12/15/16 15:48 12/15/16 15:48 12/15/16 15:48 12/15/16 15:48 General appearance: Present: cachectic, A&O X 3, pleasant, no acute distress, answers questions appropriately - Head Head exam: Present: atraumatic, normocephalic - Eye Eye exam: Present: PERRL, conjuntiva pink, sclera anicteric Pupils: Present: PERRL - Neck Neck exam general surgery: Present: trachea midline. Absent: lymphadenopathy, supple - Respiratory Respiratory exam: Present: decreased breath sounds. Absent: accessory muscle use, rales, respiratory distress, rhonchi, wheezes - Cardiovascular Cardiovascular exam: Present: RRR, +S1, +S2. Absent: diastolic murmur, gallop, rubs, systolic murmur - GI/Abdominal GI/Abdominal exam: Present: normal bowel sounds, soft, no peritoneal signs. Absent: distended, tenderness - Extremities Exam Extremities exam: Present: warm, radial pulses palpable and symetrical. Absent : calf tenderness, cyanotic, pedal edema - Neurological Exam Neurological exam: Present: alert, CN II-XII intact, oriented X3, no focal deficits, strengths equal and symetr throughout. Absent: pronater drift, facial droop, speech deficit - Skin Skin exam: Present: dry, intact, pallor (Color improved), warm Internal Medicine: Result - Labs CBC & Chem 7: 12/12/16 22:10 12/14/16 04:52 Labs: Urine 12/15/16 Range/Units 14:20 Urine Color Yellow (Yellow) Urine Clarity Clear (Clear) Urine pH 7.0 (5.0-8.0) pH Units Ur Specific [place] 1.013 (1.010-1.025) Urine Protein Negative (Neg-Trace) mg/dL Urine Glucose (UA) Normal (Normal) mg/dL Consult Discharge Plan - Plan Referrals: Wade Bull MD [Primary Care Provider] - 12/24/16 1:20 pm
[2016-12-15] MEDS: *HR* HYDROcodone/Acet 10/325 mg TABLET PO PRN (19:53)
[2016-12-15] MEDS: Gabapentin 300 MG CAPSULE PO SCH (21:00)
[2016-12-15] MEDS: *HR* Morphine 2 MG/ML SYRINGE IVP PRN (21:14)
[2016-12-16 02:54] LABS: Basophils % 0.3 %; Eosinophils # 0.2 K/mcL (0.0-0.6); Hematocrit 31.2 % (37.5-50.1); Immature Granulocytes % 0.3 % (0-4); Lymphocytes # 1.2 K/mcL (0.6-4.6); Lymphocytes % 16.1 %; Mean Corpuscular HGB Conc 32.4 g/dL (31.6-35.5); Mean Corpuscular Hemoglobin 28.9 pg (28.0-33.3); Mean Corpuscular Volume 89.4 fL (83.0-100.0); Mean Platelet Volume 10.7 fL (9.4-12.4); Monocytes # 0.7 K/mcL (0.0-1.3); Monocytes % 10.1 %; Neutrophils # 5.1 K/mcL (1.6-8.9); Platelet Count 189 K/mcL (140-400); Red Blood Count 3.49 M/mcL (4.19-5.50); Red Cell Distribution Width 13.9 % (11.5-14.5); Segmented Neutrophils % 70.2 %
[2016-12-16 02:56] LABS: Hemoglobin 10.1 g/dL (12.9-16.9)
[2016-12-16 03:08] LABS: BUN/Creatinine Ratio 15 (6-26); Blood Urea Nitrogen 9 mg/dL (8-26); Calcium 8.7 mg/dL (8.6-10.8); Carbon Dioxide 26 mEq/L (19-29); Chloride 107 mEq/L (98-109); Glucose 87 mg/dL (70-99); Osmolality,Calculated 288 (280-300); Potassium 3.6 mEq/L (3.5-4.5); Sodium 140 mEq/L (136-145); eGFR For African Americans > 60 (> 60); eGFR For Non-African Americans > 60 (> 60)
[2016-12-16] MEDS: *HR* Enoxaparin 40 MG/0.4 ML SYRINGE SQ SCH (06:31)
[2016-12-16] MEDS: *HR* HYDROcodone/Acet 10/325 mg TABLET PO PRN ×2 (06:35→19:49)
[2016-12-16] MEDS: Ipratropium Neb 0.5 MG NEBULIZER IH SCH ×3 (08:10→21:58)
[2016-12-16] MEDS: Pantoprazole 40 MG VIAL IVP SCH (08:55)
[2016-12-16] MEDS: *HR* LORazepam 0.5 MG TABLET PO SCH ×3 (08:55→20:50)
[2016-12-16] MEDS: Sennosides/Docusate Sodium TABLET PO SCH ×2 (08:55→20:50)
--- NOTE | 2016-12-16 10:26 | Palliative Progress Note ---
Date of Encounter: 12/16/16 Time of Encounter: 10:20 - Assessment and plan (1) Intractable nausea and vomiting Current Visit: Yes Status: Resolved Assessment and plan: Has tolerated transition to oral meds well. Will D/C Benadryl in case this was contributing to urinary symptoms. Continue with scheduled Reglan/Ativan with Phenergan PRN . Qualifiers: Vomiting type: unspecified Qualified Code(s): R11.2 - Nausea with vomiting , unspecified (2) Cancer associated pain Current Visit: Yes Status: Acute Assessment and plan: Continue with [place]. Utilized x2 last 24 hours. (3) Constipation Current Visit: Yes Status: Acute Assessment and plan: + BM yesterday. States that Reglan has helped this. Monitor Qualifiers: Constipation type: slow transit constipation Qualified Code(s): K59.01 - Slow transit constipation (4) Goals of care, counseling/discussion Current Visit: Yes Status: Acute Assessment and plan: Hoping to go home tomorrow. Desires [place] home palliative care and to continue with immunotherapy for cancer treatment. - Time Spent With Patient Total time spent is greater than 50% in coordination of care (as documented) at patient's floor/unit and/or counseling patient: 25 - 35 minutes - Subjective Interval history: Patient awake and alert today, at bedside. Denies any nausea, ate well this am. Appears to be tolerating oral regimen for nausea well. Did have urinary burning with urgency yesterday. UA negative. Pyridium has helped. - Constitutional Vitals: Abnormal lab results RBC 3.49 M/mcL (4.19-5.50) L 12/16/16 02:14 Hgb 10.1 g/dL (12.9-16.9) L D 12/16/16 02:14 Hct 31.2 % (37.5-50.1) L 12/16/16 02:14 Creatinine 0.59 mg/dL (0.72-1.25) L 12/16/16 02:14 Phosphorus 2.2 mg/dL (2.3-4.7) L 12/13/16 05:57 Iron 30 mcg/dL (65-175) L 12/14/16 04:52 % Saturation 14 % (20-55) L 12/14/16 04:52 Transferrin 156 mg/dL (174-364) L 12/14/16 04:52 Alkaline Phosphatase 207 Units/L (38-126) H 12/12/16 22:10 Albumin 3.4 g/dL (3.5-5.0) L 12/12/16 22:10 Globulin 4.0 g/dL (2.4-3.5) H 12/12/16 22:10 Albumin/Globulin Ratio 0.9 (1.1-2.2) L 12/12/16 22:10 Prealbumin 13.0 mg/dL (18.0-45.0) L 12/14/16 04:52 TSH 0.257 mcIU/mL (0.350-4.840) L 12/14/16 04:52 General appearance: Present: no acute distress - Respiratory Respiratory exam: Present: CTAB - Cardiovascular Cardiovascular exam: Present: +S1, +S2 - GI/Abdominal GI/Abdominal exam: Present: normal bowel sounds, soft - Extremities Exam Extremities exam: Present: normal capillary refill, normal inspection - Neurological Exam Neurological exam: Present: alert, oriented X3, strengths equal and symetr throughout - Skin Skin exam: Present: dry, pallor, warm Palliative Quality Palliative Quality: Screen for Code Status: Yes, Screen for Goals of Care: Yes, Screen for Pain: Yes, If Pain Regimen Started, Initiate Bowel Regimen: Yes, Screen for Nausea/Vomitting: Yes - Labs CBC & Chem 7: 12/16/16 02:14 12/16/16 02:14 Labs: Laboratory Results - last 24 hr 12/15/16 12/16/16 12/16/16 14:20 02:14 02:14 WBC 7.3 RBC 3.49 L Hgb 10.1 L D Hct 31.2 L MCV 89.4 MCH 28.9 MCHC 32.4 RDW 13.9 Plt Count 189 MPV 10.7 Immature Gran % 0.3 Seg Neutrophils % 70.2 Lymphocytes % 16.1 Monocytes % 10.1 Eosinophils % 3.0 Basophils % 0.3 Neutrophils # 5.1 Lymphocytes # 1.2 Monocytes # 0.7 Eosinophils # 0.2 Basophils # 0.0 Sodium 140 Potassium 3.6 Chloride 107 Carbon Dioxide 26 BUN 9 Creatinine 0.59 L Est GFR ( Amer) > 60 Est GFR (Non-Af Amer) > 60 BUN/Creatinine Ratio 15 Glucose 87 Calculated Osmolality 288 Calcium 8.7 Urine Color Yellow Urine Clarity Clear Urine pH 7.0 Ur Specific [place] 1.013 Urine Protein Negative Urine Glucose (UA) Normal Urine Ketones Negative Urine Blood Negative Urine Nitrite Negative Urine Bilirubin Negative Urine Urobilinogen Normal Ur Leukocyte Esterase Negative Ur Culture Indicated? NO Consult Discharge Plan - Plan Referrals: Wade Bull MD [Primary Care Provider] - 12/24/16 1:20 pm
--- NOTE | 2016-12-16 13:57 | Internal Med Progress Note ---
Date of Encounter: 12/16/16 Time of Encounter: 09:00 - Assessment and plan (1) DVT prophylaxis Current Visit: Yes Status: Acute Assessment and plan: Lovenox subcutaneously (2) Metastatic primary lung cancer Current Visit: Yes Status: Chronic Assessment and plan: Oncology on board. Appreciate their recommendations. Focus at this time is on controlling his nausea and vomiting. Nausea and vomiting improved after treatment, switched to by mouth medication already. Qualifiers: Laterality: unspecified laterality Qualified Code(s): C34.90 - Malignant neoplasm of unspecified part of unspecified bronchus or lung (3) Failure to thrive Current Visit: Yes Status: Acute Assessment and plan: See prior note for intractable nausea and vomiting Qualifiers: Failure to thrive age range: in adult Qualified Code(s): R62.7 - Adult failure to thrive (4) Intractable nausea and vomiting Current Visit: Yes Status: Resolved Assessment and plan: Patient's nausea and vomiting has been controlled since admission. He has responded well to Phenergan. His by mouth intake has improved drastically over the past couple days. His spirits are higher and he is less pale. -Med has been switched to po now. Follow up tolerance. - Plan is to discharge for palliative care with oncology clinic follow up. Qualifiers: Vomiting type: unspecified Qualified Code(s): R11.2 - Nausea with vomiting , unspecified (5) COPD (chronic obstructive pulmonary disease) Current Visit: Yes Status: Chronic Assessment and plan: No acute exacerbation. Patient denies shortness of breath above his norm. Qualifiers: COPD type: unspecified COPD Qualified Code(s): J44.9 - Chronic obstructive pulmonary disease, unspecified (6) Dysuria Current Visit: Yes Status: Acute Assessment and plan: Improved on Pyridium. UA negative for UTI. Will continue Pyridium, encourage pt to hydrate himself. - Time Spent With Patient 25 - 35 minutes - Subjective Interval history: Patient is an 71-year-old male admitted for nausea and vomiting. Past medical history is significant for lung cancer with metastasis. Patient was seen and examined. His symptoms has improved after putting patient on Marinol/phenergan/reglan/ativan combination therapy. Oncology and palliative care consult appreciated. Dysuria has also improved with Pyridium. Will continue current regimen and closely monitor patient. - Constitutional Vitals: Temp Pulse Resp BP Pulse Ox 97.6 F 92 18 114/75 91 12/16/16 10:45 12/16/16 10:45 12/16/16 10:45 12/16/16 10:45 12/16/16 10:45 General appearance: Present: cachectic, A&O X 3, pleasant, no acute distress, answers questions appropriately - Head Head exam: Present: atraumatic, normocephalic - Eye Eye exam: Present: PERRL, conjuntiva pink, sclera anicteric Pupils: Present: PERRL - Neck Neck exam general surgery: Present: supple, trachea midline. Absent: lymphadenopathy - Respiratory Respiratory exam: Present: CTAB. Absent: accessory muscle use, rales, rhonchi, wheezes - Cardiovascular Cardiovascular exam: Present: RRR, +S1, +S2. Absent: diastolic murmur, gallop, rubs, systolic murmur - GI/Abdominal GI/Abdominal exam: Present: normal bowel sounds, soft, no peritoneal signs. Absent: distended, tenderness - Extremities Exam Extremities exam: Present: warm, radial pulses palpable and symetrical. Absent : calf tenderness, cyanotic, pedal edema - Neurological Exam Neurological exam: Present: CN II-XII intact, oriented X3, no focal deficits. Absent: pronater drift, facial droop, speech deficit - Skin Skin exam: Present: dry, intact Internal Medicine: Result - Labs CBC & Chem 7: 12/16/16 02:14 12/16/16 02:14 Labs: Short CBC 12/16/16 Range/Units 02:14 WBC 7.3 (4.3-11.1) K/mcL Hgb 10.1 L D (12.9-16.9) g/dL Hct 31.2 L (37.5-50.1) % Plt Count 189 (140-400) K/mcL Neutrophils # 5.1 (1.6-8.9) K/mcL BMP 12/16/16 02:14 Sodium 140 Potassium 3.6 Chloride 107 Carbon Dioxide 26 BUN 9 Creatinine 0.59 L Glucose 87 Calcium 8.7 Urine 12/15/16 Range/Units 14:20 Urine Color Yellow (Yellow) Urine Clarity Clear (Clear) Urine pH 7.0 (5.0-8.0) pH Units Ur Specific [place] 1.013 (1.010-1.025) Urine Protein Negative (Neg-Trace) mg/dL Urine Glucose (UA) Normal (Normal) mg/dL Consult Discharge Plan - Plan Referrals: Wade Bull MD [Primary Care Provider] - 12/24/16 1:20 pm
[2016-12-16] MEDS: *HR* Morphine 2 MG/ML SYRINGE IVP PRN (18:13)
[2016-12-16] MEDS: Gabapentin 300 MG CAPSULE PO SCH (20:49)
[2016-12-16] MEDS: 0.9 % Sodium Chloride 1,000 ML IVC SCH (21:34)
[2016-12-17 04:42] LABS: Basophils % 0.2 %; Eosinophils # 0.2 K/mcL (0.0-0.6); Eosinophils % 3.3 %; Hemoglobin 10.7 g/dL (12.9-16.9); Immature Granulocytes % 0.3 % (0-4); Lymphocytes % 15.1 %; Mean Corpuscular HGB Conc 32.4 g/dL (31.6-35.5); Mean Corpuscular Hemoglobin 28.5 pg (28.0-33.3); Mean Platelet Volume 10.4 fL (9.4-12.4); Monocytes # 0.6 K/mcL (0.0-1.3); Monocytes % 8.6 %; Neutrophils # 4.8 K/mcL (1.6-8.9); Platelet Count 203 K/mcL (140-400); Red Blood Count 3.75 M/mcL (4.19-5.50); Red Cell Distribution Width 13.8 % (11.5-14.5); Segmented Neutrophils % 72.5 %
[2016-12-17 04:55] LABS: BUN/Creatinine Ratio 15 (6-26); Blood Urea Nitrogen 8 mg/dL (8-26); Carbon Dioxide 26 mEq/L (19-29); Chloride 106 mEq/L (98-109); Glucose 86 mg/dL (70-99); Osmolality,Calculated 288 (280-300); Potassium 3.7 mEq/L (3.5-4.5); Sodium 140 mEq/L (136-145); eGFR For African Americans > 60 (> 60); eGFR For Non-African Americans > 60 (> 60)
[2016-12-17] MEDS: *HR* Enoxaparin 40 MG/0.4 ML SYRINGE SQ SCH (06:37)
--- NOTE | 2016-12-17 07:18 | Urology - Consult Note ---
Date of Encounter: 12/17/16 Time of Encounter: 07:15 - Assessment and Plan (1) Urinary retention due to benign prostatic hyperplasia Current Visit: Yes Status: Acute Assessment and plan: continue flomax. patient does not want catheter. if patient goes home then needs f/u in 2-3 weeks. Urology CN:JOI Consult date: 12/17/16 Reason for consult Urology: Other (bladder pain) Requesting physician: Batsheva Quintana History of present illness: agatha is a 71 y/o male well known to me for h/o urinary retention. The patient now admitted with some SOB. patient had lower abd discomfort. The patient states that he was started on flomax and is voiding much better. CT done last night showed markedly distended bladder. patient does not want a catheter. Past Med Surg Social Fam HX - Past Medical History Medical history: arthritis, cancer, COPD, other Psychiatric history: no psych history - Past Surgical History Surgical History: appendectomy, cataract, cholecystectomy - Social History Smoking Status: Former smoker Smokeless Tobacco Status: No Alcohol use: none Drug use: none Medications and Allergies Dronabinol [Marinol] 5 mg PO BID 12/13/16 [History] HYDROcodone/Acet 10/325 mg [[place] 10-325 mg] 1 - 2 tab PO Q6HR PRN 12/13/16 [ History] Ipratropium Neb [Atrovent Neb] 0.5 mg IH TID 12/13/16 [History] Allergies aspirin [From Percodan] Allergy (Verified 12/12/16 21:42) Hallucinating Oxycodone [From Percocet] Allergy (Verified 12/12/16 21:42) Hallucinating Review of Systems - Constitutional no fever(s) - EENT Nose, mouth and throat: no dizziness - Cardiovascular no chest pain - Respiratory no cough - Gastrointestinal abdominal pain Exam Initial Vital Signs Temp Pulse Resp BP Pulse Ox 98.3 F 106 18 106/68 95 12/12/16 21:43 12/12/16 21:43 12/12/16 21:43 12/12/16 21:43 12/12/16 21:43 - General physical appearance Present: well developed - Eyes Present: PERRL - Respiratory Present: normal respiratory effort - Cardiovascular Cardiovascular exam IM: RRR Urology Results - Labs 12/17/16 03:59 12/17/16 03:59 Abnormal lab results RBC 3.75 M/mcL (4.19-5.50) L 12/17/16 03:59 Hgb 10.7 g/dL (12.9-16.9) L 12/17/16 03:59 Hct 33.0 % (37.5-50.1) L 12/17/16 03:59 Creatinine 0.55 mg/dL (0.72-1.25) L 12/17/16 03:59 Phosphorus 2.2 mg/dL (2.3-4.7) L 12/13/16 05:57 Iron 30 mcg/dL (65-175) L 12/14/16 04:52 % Saturation 14 % (20-55) L 12/14/16 04:52 Transferrin 156 mg/dL (174-364) L 12/14/16 04:52 Alkaline Phosphatase 207 Units/L (38-126) H 12/12/16 22:10 Albumin 3.4 g/dL (3.5-5.0) L 12/12/16 22:10 Globulin 4.0 g/dL (2.4-3.5) H 12/12/16 22:10 Albumin/Globulin Ratio 0.9 (1.1-2.2) L 12/12/16 22:10 Prealbumin 13.0 mg/dL (18.0-45.0) L 12/14/16 04:52 TSH 0.257 mcIU/mL (0.350-4.840) L 12/14/16 04:52 Diabetes panel 12/17/16 Range/Units 03:59 Sodium 140 (136-145) mEq/L Potassium 3.7 (3.5-4.5) mEq/L Chloride 106 (98-109) mEq/L Carbon Dioxide 26 (19-29) mEq/L BUN 8 (8-26) mg/dL Creatinine 0.55 L (0.72-1.25) mg/dL Glucose 86 (70-99) mg/dL Calcium 9.0 (8.6-10.8) mg/dL Calcium panel 12/17/16 Range/Units 03:59 Calcium 9.0 (8.6-10.8) mg/dL Pituitary panel 12/17/16 Range/Units 03:59 Sodium 140 (136-145) mEq/L Potassium 3.7 (3.5-4.5) mEq/L Chloride 106 (98-109) mEq/L Carbon Dioxide 26 (19-29) mEq/L BUN 8 (8-26) mg/dL Creatinine 0.55 L (0.72-1.25) mg/dL Glucose 86 (70-99) mg/dL Calcium 9.0 (8.6-10.8) mg/dL Adrenal panel 12/17/16 Range/Units 03:59 Sodium 140 (136-145) mEq/L Potassium 3.7 (3.5-4.5) mEq/L Chloride 106 (98-109) mEq/L Carbon Dioxide 26 (19-29) mEq/L BUN 8 (8-26) mg/dL Creatinine 0.55 L (0.72-1.25) mg/dL Glucose 86 (70-99) mg/dL Calcium 9.0 (8.6-10.8) mg/dL All other labs normal. - Imaging CT scan - abdomen: image reviewed CT scan - pelvis: image reviewed Consult Discharge Plan - Plan Referrals: Wade Bull MD [Primary Care Provider] - 12/24/16 1:20 pm
[2016-12-17] MEDS: Ipratropium Neb 0.5 MG NEBULIZER IH SCH (07:47)
[2016-12-17 08:06] VITALS: BP 118/66
[2016-12-17] MEDS: *HR* LORazepam 0.5 MG TABLET PO SCH (09:21)
[2016-12-17] MEDS: Pantoprazole 40 MG VIAL IVP SCH (09:21)
[2016-12-17] MEDS: Sennosides/Docusate Sodium TABLET PO SCH (09:39)
[2016-12-17] MEDS: *HR* HYDROcodone/Acet 10/325 mg TABLET PO PRN (09:39)
--- NOTE | 2016-12-17 10:11 | Discharge Summary ---
Date of Encounter: 12/17/16 Time of Encounter: 09:30 - Discharge Diagnosis (1) DVT prophylaxis Priority: Secondary Status: Acute (2) Metastatic primary lung cancer Priority: Secondary Status: Chronic Qualifiers: Laterality: unspecified laterality Qualified Code(s): C34.90 - Malignant neoplasm of unspecified part of unspecified bronchus or lung (3) Failure to thrive Priority: Primary Status: Acute Qualifiers: Failure to thrive age range: in adult Qualified Code(s): R62.7 - Adult failure to thrive (4) Intractable nausea and vomiting Priority: Primary Status: Resolved Qualifiers: Vomiting type: unspecified Qualified Code(s): R11.2 - Nausea with vomiting , unspecified (5) COPD (chronic obstructive pulmonary disease) Priority: Secondary Status: Chronic Qualifiers: COPD type: unspecified COPD Qualified Code(s): J44.9 - Chronic obstructive pulmonary disease, unspecified (6) Dysuria Priority: Primary Status: Acute (7) BPH (benign prostatic hyperplasia) Priority: Primary Status: Acute Qualifiers: Prostatic enlargement morphology: unspecified morphology Lower urinary tract symptom presence: symptoms present Qualified Code(s): N40.1 - Benign prostatic hyperplasia with lower urinary tract symptoms - Discharge Medications Prescriptions: Promethazine [Phenergan] 12.5 mg PO Q6HR PRN #60 tablet PRN Reason: Nausea And Vomiting Dronabinol [Marinol] 5 mg PO BID #60 capsule LORazepam [Ativan] 0.5 mg PO TID #90 tablet Metoclopramide [Reglan] 10 mg PO QIDAC #90 tablet Tamsulosin [Flomax] 0.4 mg PO HS #30 capsule Home Medications: HYDROcodone/Acet 10/325 mg [[place] 10-325 mg] 1 - 2 tab PO Q6HR PRN 12/13/16 [ History] Ipratropium Neb [Atrovent Neb] 0.5 mg IH TID 12/13/16 [History] Dronabinol [Marinol] 5 mg PO BID #60 capsule 12/17/16 [Rx] Gabapentin [Neurontin] 300 mg PO HS capsule 12/17/16 [Rx] LORazepam [Ativan] 0.5 mg PO TID #90 tablet 12/17/16 [Rx] Metoclopramide [Reglan] 10 mg PO QIDAC #90 tablet 12/17/16 [Rx] Promethazine [Phenergan] 12.5 mg PO Q6HR PRN #60 tablet 12/17/16 [Rx] Tamsulosin [Flomax] 0.4 mg PO HS #30 capsule 12/17/16 [Rx] Allergies/Adverse Reactions: Allergies aspirin [From Percodan] Allergy (Verified 12/12/16 21:42) Hallucinating Oxycodone [From Percocet] Allergy (Verified 12/12/16 21:42) Hallucinating Procedures/tests Complete & Pending: Procedures Performed prior 72 hours Category Date Time Status CT abd pelvis wo no iv no oral [CT] Stat Cat Scan 12/16/16 16:28 Completed Date of admission: 12/14/16 10:04 Primary care physician: Wade Bull MD Consults: 12/16/16 16:30 Consult to Urology [CONS] Routine Consulting Provider: Urology Carley Reason for Consult: dysuria Call Completed: No Discharging clinician: Batsheva Quintana Anticipated date of discharge: 12/17/16 - Patient Status Disposition: Home Health Service Condition: Good Functional capacity at discharge: uses cane/walker Overall status at discharge: patient is back to baseline - Discharge Instructions Follow Up With: Wade Bull MD [Primary Care Provider] - 12/24/16 1:20 pm Gerardo Vigil MD [Partnered Physician] - 12/24/16 Fransisco Brooks MD [Partnered Physician] - 01/03/17 - Diet and Activity Activity: as per physical therapy Diet: advance to your usual diet Interval History: Mr. Benavidez is a 71 year old male With h/o lung cancer (poorly differentiated adenocarcinoma) s/p right upper lobectomy; Metastatic disease, COPD, back pain. He reports intermittent nausea and altered taste since the Jul 2016. He is worsening symptoms over the last several days, with intractable nausea and vomiting. He is not able to keep nausea medications, food or fluids. He denies hematemesis/coffee-ground vomiting. He denies significant abdominal pain. He reports that the taste of food is altered. He apparently lost 6 pounds weight in the last week. He denies a significant shortness of breath, chest pain, fever, chills, abdominal pain, dysuria, hematuria. He was evaluated in the emergency department and admitted to the hospitalist service for further management. Hospital course: Mr. Benavidez is a 71 year old male admitted for intractable nausea and vomiting. Patient has history of metastatic primary lung cancer. Patient was given IV fluid to correct the dehydration. During hospitalization, oncology and palliative care consult was called. Patient's medication has been adjusted. Patient and family decided to pursue palliative care. After treatment, patient' s symptoms has been controlled. He resumed by mouth diet and medication. He has no further nausea and vomiting and has acceptable appetite and intake. Patient also complained dysuria. CT abdomen shows BPH. Flomax has been started , urology consul saw patient and recommend follow-up at outpatient. Patient will discharge home and continue palliative care and follow-up with oncology at office. I saw and examined the patient. He is awake alert, pleasant, denies nausea vomiting. Dysuria has significantly improved after of Flomax use. Vitals are stable. Patient will discharge home with home palliative care palliative and follow-up with oncology as outpatient. - Time Spent with Patient Total time spent providing and/or coordinating discharge services: 40 minutes Greater than 30 minutes - Constitutional Vitals: Temp Pulse Resp BP Pulse Ox 97.6 F 88 16 118/66 93 12/17/16 08:05 12/17/16 08:05 12/17/16 08:05 12/17/16 08:05 12/17/16 08:05 General appearance: Present: cachectic, A&O X 3, pleasant, no acute distress, answers questions appropriately - Head Head exam: Present: atraumatic, normocephalic - Eye Eye exam: Present: PERRL, conjuntiva pink, sclera anicteric Pupils: Present: PERRL - Neck Neck exam general surgery: Present: supple, trachea midline. Absent: lymphadenopathy - Respiratory Respiratory exam: Present: CTAB. Absent: accessory muscle use, rales, rhonchi, wheezes - Cardiovascular Cardiovascular exam: Present: RRR, +S1, +S2. Absent: diastolic murmur, gallop, rubs, systolic murmur - GI/Abdominal GI/Abdominal exam: Present: normal bowel sounds, soft, no peritoneal signs. Absent: distended, tenderness - Extremities Exam Extremities exam: Present: warm, radial pulses palpable and symetrical. Absent : calf tenderness, cyanotic, pedal edema - Neurological Exam Neurological exam: Present: CN II-XII intact, oriented X3, no focal deficits. Absent: pronater drift, facial droop, speech deficit - Skin Skin exam: Present: dry, intact
--- NOTE | 2016-12-17 10:24 | Physician Discharge Referral ---
Home Health/Hosp Referral Info Transfer to: Home Health Provider in Charge Post Discharge: PCP - Diagnosis (1) DVT prophylaxis Status: Acute (2) Metastatic primary lung cancer Status: Chronic (3) Failure to thrive Status: Acute (4) Intractable nausea and vomiting Status: Resolved (5) COPD (chronic obstructive pulmonary disease) Status: Chronic (6) Dysuria Status: Acute (7) BPH (benign prostatic hyperplasia) Status: Acute - Respiratory Orders Smoking Cessation: Smoking cessation has been advised. For more information, call the [place] Tobacco Quit Line at 5-491-MLWE-NOW. - Diet/Nutrition Diet/Nutrition Orders: Regular (With ensure supplement) - Activity Activity Orders: Walker - Services Needed Following services are medically necessary services: Nursing, Home Health Aide, Physical Therapy, Occupational Therapy - Transfer Medications Prescriptions: Promethazine [Phenergan] 12.5 mg PO Q6HR PRN #60 tablet PRN Reason: Nausea And Vomiting Dronabinol [Marinol] 5 mg PO BID #60 capsule LORazepam [Ativan] 0.5 mg PO TID #90 tablet Metoclopramide [Reglan] 10 mg PO QIDAC #90 tablet Tamsulosin [Flomax] 0.4 mg PO HS #30 capsule Home Medications: HYDROcodone/Acet 10/325 mg [[place] 10-325 mg] 1 - 2 tab PO Q6HR PRN 12/13/16 [ History] Ipratropium Neb [Atrovent Neb] 0.5 mg IH TID 12/13/16 [History] Dronabinol [Marinol] 5 mg PO BID #60 capsule 12/17/16 [Rx] Gabapentin [Neurontin] 300 mg PO HS capsule 12/17/16 [Rx] LORazepam [Ativan] 0.5 mg PO TID #90 tablet 12/17/16 [Rx] Metoclopramide [Reglan] 10 mg PO QIDAC #90 tablet 12/17/16 [Rx] Promethazine [Phenergan] 12.5 mg PO Q6HR PRN #60 tablet 12/17/16 [Rx] Tamsulosin [Flomax] 0.4 mg PO HS #30 capsule 12/17/16 [Rx] Allergies/Adverse Reactions: Allergies aspirin [From Percodan] Allergy (Verified 12/12/16 21:42) Hallucinating Oxycodone [From Percocet] Allergy (Verified 12/12/16 21:42) Hallucinating Certification: Further, I certify that my clinical findings support that this patient is homebound (i.e. absences from home require considerable and taxing effort and are for medical reasons or gnosticist services or infrequently or short duration when for other reasons) because: Homebound Reason: Patient requires assistance of a person or device to safely leave home Attestation: My signature below is to certify that this patient is under my care and that I, or nurse practitioner, or a physician's assistant housekeeping manager working with me, has a face-to -face encounter with this patient.
--- NOTE | 2016-12-17 11:17 | Palliative Progress Note ---
Date of Encounter: 12/17/16 Time of Encounter: 11:11 - Assessment and plan (1) Intractable nausea and vomiting Current Visit: Yes Status: Resolved Assessment and plan: Patient now tolerating oral intake and medications. Continue with current treatment plan upon discharge. Reviewed home medications and cost. Patient aware if risks/benefits/indications of medications. Continue Phenergan, reglan , lorazepam. Qualifiers: Vomiting type: unspecified Qualified Code(s): R11.2 - Nausea with vomiting , unspecified (2) Cancer associated pain Current Visit: Yes Status: Acute Assessment and plan: Mr. Benavidez was Rx'd oxycodone on 12/10/16, but he has an allergy to it causing hallucinations. His last dose of [place] was filled 11/27/16. Will Rx for a short supply. Gabapentin for neuropathic pain-continued upon discharge. (3) Constipation Current Visit: Yes Status: Acute Assessment and plan: Reglan for nausea. Senna BID. Mr. Benavidez reports regularly timed BMs and denies straining. Qualifiers: Constipation type: slow transit constipation Qualified Code(s): K59.01 - Slow transit constipation (4) Metastatic primary lung cancer Current Visit: Yes Status: Chronic Qualifiers: Laterality: unspecified laterality Qualified Code(s): C34.90 - Malignant neoplasm of unspecified part of unspecified bronchus or lung - Time Spent With Patient Total time spent is greater than 50% in coordination of care (as documented) at patient's floor/unit and/or counseling patient: - Subjective Interval history: Mr. Benavidez is sitting up in bed with spouse at bedside. He reports his pain in "tolerable" now that he got his pain medications. His appetite has improved greatly and he reports his nausea has resolved. Mr. Benavidez is looking forward to discharging home today. - Constitutional Vitals: Abnormal lab results RBC 3.75 M/mcL (4.19-5.50) L 12/17/16 03:59 Hgb 10.7 g/dL (12.9-16.9) L 12/17/16 03:59 Hct 33.0 % (37.5-50.1) L 12/17/16 03:59 Creatinine 0.55 mg/dL (0.72-1.25) L 12/17/16 03:59 Phosphorus 2.2 mg/dL (2.3-4.7) L 12/13/16 05:57 Iron 30 mcg/dL (65-175) L 12/14/16 04:52 % Saturation 14 % (20-55) L 12/14/16 04:52 Transferrin 156 mg/dL (174-364) L 12/14/16 04:52 Alkaline Phosphatase 207 Units/L (38-126) H 12/12/16 22:10 Albumin 3.4 g/dL (3.5-5.0) L 12/12/16 22:10 Globulin 4.0 g/dL (2.4-3.5) H 12/12/16 22:10 Albumin/Globulin Ratio 0.9 (1.1-2.2) L 12/12/16 22:10 Prealbumin 13.0 mg/dL (18.0-45.0) L 12/14/16 04:52 TSH 0.257 mcIU/mL (0.350-4.840) L 12/14/16 04:52 Exam: 71 year old male patient, thin, alert and oriented - Eye Eye exam: Present: EOMI - Respiratory Respiratory exam: Absent: accessory muscle use, respiratory distress, tachypnea - Cardiovascular Cardiovascular exam: Present: RRR - GI/Abdominal GI/Abdominal exam: Present: soft. Absent: guarding, tenderness - Extremities Exam Extremities exam: Present: normal inspection - Neurological Exam Neurological exam: Present: alert, no focal deficits, strengths equal and symetr throughout - Psychiatric Psychiatric exam: Absent: agitated, anxious - Skin Skin exam: Present: dry, warm Palliative Quality Palliative Quality: Screen for Code Status: Yes, Screen for Goals of Care: Yes, Screen for Pain: Yes, If Pain Regimen Started, Initiate Bowel Regimen: Yes, Screen for Nausea/Vomitting: Yes - Labs CBC & Chem 7: 12/17/16 03:59 12/17/16 03:59 Labs: Laboratory Results - last 24 hr 12/17/16 12/17/16 03:59 03:59 WBC 6.6 RBC 3.75 L Hgb 10.7 L Hct 33.0 L MCV 88.0 MCH 28.5 MCHC 32.4 RDW 13.8 Plt Count 203 MPV 10.4 Immature Gran % 0.3 Seg Neutrophils % 72.5 Lymphocytes % 15.1 Monocytes % 8.6 Eosinophils % 3.3 Basophils % 0.2 Neutrophils # 4.8 Lymphocytes # 1.0 Monocytes # 0.6 Eosinophils # 0.2 Basophils # 0.0 Sodium 140 Potassium 3.7 Chloride 106 Carbon Dioxide 26 BUN 8 Creatinine 0.55 L Est GFR ( Amer) > 60 Est GFR (Non-Af Amer) > 60 BUN/Creatinine Ratio 15 Glucose 86 Calculated Osmolality 288 Calcium 9.0 - Impressions Impressions Abdomen/Pelvis CT 12/16/16 16:28 IMPRESSION: Enlarged prostate gland with moderate distention of the urinary bladder. Otherwise negative noncontrast study of the abdomen and pelvis. D/ / Mary Glez Cha, MD / Mary Glez Cha, MD Interpreting Provider: Mary Glez Cha, MD Consult Discharge Plan - Plan Referrals: Fransisco Brooks MD [Partnered Physician] - 01/03/17 Wade Bull MD [Primary Care Provider] - 12/24/16 1:20 pm Gerardo Vigil MD [Partnered Physician] - 12/24/16 Prescriptions: HYDROcodone/Acet 10/325 mg [[place] 10-325 mg] 1 tab PO Q6HR PRN #20 tab PRN Reason: Pain Promethazine [Phenergan] 25 mg PO Q6HR PRN #60 tablet PRN Reason: nausea/vomiting Dronabinol [Marinol] 5 mg PO BID #60 capsule Gabapentin [Neurontin] 300 mg PO HS #30 capsule LORazepam [Ativan] 0.5 mg PO TID #90 tablet Metoclopramide [Reglan] 10 mg PO QIDAC #90 tablet Tamsulosin [Flomax] 0.4 mg PO HS #30 capsule
== END 2016-12-17 13:50 | disposition home health service (06) | DRG 388 ==
LOC: 3BNU 21:40 → EMEROO 21:40 → 3BNU 12-13 00:59 → SUATTDRO 12-14 10:04
PROVIDERS: ADMIT Nurse Practitioner Family; ATTEND Internal Medicine

== ENCOUNTER 2018-01-13 11:50 | Inpatient (IN) ==
[2018-01-13] MEDS ORDERED: Naloxone 0.4 MG/ML INJ IVP PRN (14:58)
--- NOTE | 2018-01-13 15:10 | Internal Med History&Physical ---
Date of Encounter: 01/13/18 Time of Encounter: 15:08 Internal Medicine - H&P: HPI Chief complaint: Chest pain Admitted From: Hospital to Hospital Transfer Plans for Post Hospital Care: Home History of present illness: Mr. Benavidez is a 72 year old male with metastatic lung cancer status post right pneumonectomy, on immunotherapy presented with right pleuritic chest pain to an outside facility. The patient reports he was in his usual state of health until last night when he developed sudden sharp right-sided chest pain worsened with deep breaths, begun in the left right-sided, at time will review now in the right upper lung. He denies fever or chills, he denies sick contacts or recent travels, he reports associated shortness of breath worse than his baseline. He denies leg swelling, nausea, vomiting, diaphoresis or dizziness. He denies any changes in abdominal or urinary habits. he denies neurologic symptoms Other ROS unremarkable At the present in facility, CAT scan done showed left apical pneumothorax without mediastinal shift, along with right apical scaring and bilateral multifocal pneumonia. He quit smoking 2 years ago The patient would be admitted inpatient for secondary pneumothorax likely due to multifocal pneumonia, bullous emphysema, Patient is currently hemodynamically stable. Patient and at the bedside report that the patient is DNR, but would like a short trial of intubation if necessary. 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 Psychiatric history: no psych history - Past Surgical History Surgical History: appendectomy, cataract, cholecystectomy, other Additional surgical history: lung surgery - Social History Smoking Status: Former smoker Smokeless Tobacco Status: No Alcohol use: none Drug use: marijuana Internal Medicine - H&P: Meds Budesonide/Formoterol 160/4.5 [Symbicort 160/4.5] 2 puff IH BIDR 10/29/17 [ History] Gabapentin [Neurontin] 300 mg PO BID 10/29/17 [History] HYDROcodone/Acet 10/325 mg [[place] 10-325 mg] 1 tab PO Q6HR PRN 10/29/17 [History ] Omeprazole [PriLOSEC] 20 mg PO DAILY 11/13/17 [History] LORazepam [Ativan] 0.5 mg PO TID 12/04/17 [History] Promethazine [Phenergan] 25 mg PO Q6HR PRN #60 tablet 12/04/17 [Rx] Dronabinol [Marinol] 5 mg PO BID 01/13/18 [History] Ipratropium Neb [Atrovent Neb] 0.5 mg IH TID 01/13/18 [History] Megestrol Acetate [Megace] 40 mg PO DAILY 01/13/18 [History] Mirtazapine [Remeron] 15 mg PO QPM 01/13/18 [History] Pembrolizumab [Keytruda] 3 mg IVP Q3W 01/13/18 [History] 3 Allergy/AdvReac Type Severity Reaction Status Date / Time aspirin [From Percodan] AdvReac Hallucinati Verified 12/04/17 13:54 ng Oxycodone [From Percocet] AdvReac Hallucinati Verified 12/04/17 13:54 ng All Systems PM: A 10-system review of systems was performed and is negative for pertinent findings except as documented above in the HPI. - Constitutional Constitutional: no chills, no fever(s), no night sweats - EENT Eyes: no change in vision, no discharge, no pain, no photophobia Ears: no ear discharge, no ear pain, no tinnitus Nose, mouth and throat: no dysphagia, no nasal discharge, no neck pain, no sore throat - Cardiovascular Cardiovascular ROS IM: as per HPI - Respiratory Respiratory: as per HPI - Gastrointestinal Gastrointestinal: no abdominal pain, no diarrhea, no hematemesis, no hematochezia, no melena, no nausea, no vomiting - Musculoskeletal Musculoskeletal ROS IM: no numbness, no tingling - Integumentary Integumentary IM: no rash, no unusual bruising - Neurological Neurological ROS: no confusion, no convulsions, no focal weakness, no numbness, no tingling, no tremor(s) - Hematologic/Lymphatic Hematologic/Lymphatic: no easy bruising - Constitutional Vitals: Temp Pulse Resp BP Pulse Ox 98.2 F 86 18 107/66 95 01/13/18 13:33 01/13/18 13:33 01/13/18 13:33 01/13/18 13:33 01/13/18 14:19 General appearance: Present: cachectic, mild distress, A&O X 3, pleasant - Head Head exam: Present: atraumatic - Eye Eye exam: Present: PERRL, conjuntiva pink, sclera anicteric - Neck Neck exam general surgery: Present: normal inspection - Respiratory Respiratory exam: Present: decreased breath sounds - Cardiovascular Cardiovascular exam: Present: RRR, +S1, +S2 - GI/Abdominal GI/Abdominal exam: Present: normal bowel sounds, soft, no peritoneal signs. Absent: tenderness - Extremities Exam Extremities exam: Present: warm, radial pulses palpable and symmetrical. Absent : calf tenderness, cyanotic, pedal edema - Neurological Exam Neurological exam: Present: alert, CN II-XII intact, oriented X3, no focal deficits. Absent: pronater drift, facial droop, speech deficit - Skin Skin exam: Present: dry, intact - Assessment and plan (1) Pneumothorax on left Current Visit: Yes Status: Acute Assessment and plan: Secondary pneumothorax with no mediastinal shift in a patient with severe bullous emphysema and bilateral multifocal pneumonia. Place patient on oxygen Serial chest x-ray monitoring Antibiotics for pneumonia including atypical pneumonia coverage-cefepime, vancomycin and doxycycline. Pulmonology consult-Dr. Gaines will be seeing the patient. (2) Pneumonia Current Visit: Yes Status: Acute Assessment and plan: Patient with history of lung cancer on immunotherapy who presented with acute pleuritic chest pain but right apical left pneumothorax and bilateral infiltrates suspicious for multiple focal pneumonia Obtain blood culture Started on antibiotics-vancomycin/cefepime/doxycycline Oxygen supplementation when necessary Continue to monitor. Qualifiers: Pneumonia type: due to unspecified organism Laterality: bilateral Lung location: unspecified part of lung Qualified Code(s): J18.9 - Pneumonia, unspecified organism (3) BPH (benign prostatic hyperplasia) Current Visit: Yes Status: Chronic Assessment and plan: continue home meds Qualifiers: Lower urinary tract symptom presence: symptoms absent Qualified Code(s): N40.0 - Benign prostatic hyperplasia without lower urinary tract symptoms (4) Cancer associated pain Current Visit: Yes Status: Chronic Assessment and plan: continue home meds (5) DVT prophylaxis Current Visit: Yes Status: Chronic Assessment and plan: SQ lovenox (6) Depression Current Visit: Yes Status: Chronic Assessment and plan: continue home meds Qualifiers: Depression Type: unspecified Qualified Code(s): F32.9 - Major depressive disorder, single episode, unspecified (7) Protein-calorie malnutrition, severe Current Visit: Yes Status: Chronic Assessment and plan: continue home meds Patient and his at the bedside report they follow up with 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 the 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 Continue supplements and Megace (8) COPD (chronic obstructive pulmonary disease) Current Visit: Yes Status: Chronic Assessment and plan: Not in exacerbation at this time Continue home [facility] heathn Qualifiers: COPD type: emphysema Emphysema type: panlobular Qualified Code(s): J43.1 - Panlobular emphysema (9) Metastatic primary lung cancer Current Visit: Yes Status: Chronic Assessment and plan: management per oncology as out-patient Qualifiers: Laterality: unspecified laterality Qualified Code(s): C34.90 - Malignant neoplasm of unspecified part of unspecified bronchus or lung - Time Spent With Patient Total time spent is greater than 50% in coordination of care (as documented) at patient's floor/unit and/or counseling patient:
[2018-01-13] MEDS: *HR* HYDROcodone/Acet 10/325 mg TABLET PO PRN ×2 (15:28→21:36)
[2018-01-13] MEDS: Cefepime HCl 1,000 MG in Water for inj. (sterile) 20 ML 10 ML IVP SCH (15:32)
--- NOTE | 2018-01-13 15:39 | Pulmonology Consult Note ---
Date of Encounter: 01/13/18 Time of Encounter: 15:20 Assessment and Plan (1) Pneumothorax on left Current Visit: Yes Status: Acute Recent has secondary spontaneous pneumothorax secondary to extensive bullous disease patient pneumothorax less than one centimeters in the imaging will do conservative management of her management with oxygen supplementation if the pneumothorax expands greater than 1-2 cm will need will need tube thoracostomy. Counseled about if it recurs she will need thoracoscopy evaluation and possible stapling of the bullous disease. Patient will have a poor prognosis in the background of metastatic adenocarcinoma. We will repeat a chest x-ray in the morning and see the resolution of pneumothorax. Since is very tiny he might need a repeat CT scan to see resolution of pneumothorax. (2) Pneumonia Current Visit: Yes Status: Acute Patient has bilateral*disease left greater than right coronary with broad- spectrum antibiotics will add atypical coverage. Qualifiers: Pneumonia type: due to unspecified organism Laterality: bilateral Lung location: unspecified part of lung Qualified Code(s): J18.9 - Pneumonia, unspecified organism (3) COPD (chronic obstructive pulmonary disease) Current Visit: Yes Status: Chronic Continue the current bronchodilator regimen. Patient does not look like he is in COPD flareups patient does not need steroids at this moment. Qualifiers: COPD type: emphysema Emphysema type: panlobular Qualified Code(s): J43.1 - Panlobular emphysema (4) Metastatic primary lung cancer Current Visit: Yes Status: Chronic Patient has metastatic primary lung cardiac adenocarcinoma patient is on IV immunotherapy. Qualifiers: Laterality: unspecified laterality Qualified Code(s): C34.90 - Malignant neoplasm of unspecified part of unspecified bronchus or lung History of Present Illness Consult date: 01/13/18 Requesting physician: Anthony Valentino Reason for consult: chest pain, abnormal CXR/CT (left sided tiny apical pneumothorax) Chief complaint: Chest pain History of present illness: 72-year-old male with past medical history significant for stage III adenocarcinoma was treated in 2016 - 2017 supported by right upper lobectomy with recurrence metastatic adenocarcinoma with the neck and in groin lymphadenopathy consistent with metastatic adenocarcinoma of lung followed by radiology patient is on immunotherapy. Patient has long-standing COPD with emphysematous bullous disease on bronchodilators. Patient was apparently doing fine and suddenly developed left-sided pleuritic chest pain sometimes radiates to the right he says most on the left side. It hurts to breathe he cannot take a deep breath she had a CTA was negative for for pulmonary embolism but showed a small tiny apical pneumothorax suspicious less than one centimeters. Patient denies any cough more than baseline denies any increased phlegm denies any fever or chills denies any other constitutional symptoms. Patient denies any abdominal or neuro symptoms denies any headache denies any peripheral neuropathy symptoms. Denies any musculoskeletal symptoms. Pulmonary is consulted for management of this secondary spontaneous pneumothorax. 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 Psychiatric history: no psych history - Past Surgical History Surgical History: appendectomy, cataract, cholecystectomy, other Additional surgical history: lung surgery - Social History Smoking Status: Former smoker Smokeless Tobacco Status: No Alcohol use: none Drug use: marijuana Medications and Allergies Budesonide/Formoterol 160/4.5 [Symbicort 160/4.5] 2 puff IH BIDR 10/29/17 [ History] Gabapentin [Neurontin] 300 mg PO BID 10/29/17 [History] HYDROcodone/Acet 10/325 mg [Barrington 10-325 mg] 1 tab PO Q6HR PRN 10/29/17 [History ] Omeprazole [PriLOSEC] 20 mg PO DAILY 11/13/17 [History] LORazepam [Ativan] 0.5 mg PO TID 12/04/17 [History] Promethazine [Phenergan] 25 mg PO Q6HR PRN #60 tablet 12/04/17 [Rx] Dronabinol [Marinol] 5 mg PO BID 01/13/18 [History] Ipratropium Neb [Atrovent Neb] 0.5 mg IH TID 01/13/18 [History] Megestrol Acetate [Megace] 40 mg PO DAILY 01/13/18 [History] Mirtazapine [Remeron] 15 mg PO QPM 01/13/18 [History] Pembrolizumab [Keytruda] 3 mg IVP Q3W 01/13/18 [History] 3 Allergy/AdvReac Type Severity Reaction Status Date / Time aspirin [From Percodan] AdvReac Hallucinati Verified 12/04/17 13:54 ng Oxycodone [From Percocet] AdvReac Hallucinati Verified 12/04/17 13:54 ng All Systems: The remainder of the systems were reviewed and are negative Physical Examination Vital Signs: Vital Signs, Last 4 Hours Temp Pulse Resp BP Pulse Ox 01/13/18 14:19 95 01/13/18 13:33 98.2 F 86 18 107/66 95 Auscultation: left: diminished breath sounds (slightly diminshed breadth sounds) Results - Clinical Findings Intake & Output: Intake & Output 01/12/18 01/13/18 01/13/18 23:59 07:59 15:59 Weight 43.6 kg Consult Discharge Plan - Plan Referrals: Wade Bull MD [Primary Care Provider] -
[2018-01-13] MEDS: Doxycycline 100 MG in 0.9 % Sodium Chloride Mini Bag 100 ML IVPB SCH (16:53)
[2018-01-13] MEDS: Mirtazapine 15 MG TABLET PO SCH (16:53)
[2018-01-13] MEDS ORDERED: Ipratropium Neb 0.5 MG NEBULIZER IH SCH (18:00)
[2018-01-13] MEDS: Budesonide/Formoterol 160/4.5 MDI IH SCH (20:17)
[2018-01-13] MEDS: *HR* LORazepam 0.5 MG TABLET PO SCH (20:36)
[2018-01-13] MEDS: Gabapentin 300 MG CAPSULE PO SCH (20:36)
[2018-01-13] MEDS ORDERED: 0.9 % Sodium Chloride 500 ML IVC ONE (23:01)
[2018-01-14] MEDS: Cefepime HCl 1,000 MG in Water for inj. (sterile) 20 ML 10 ML IVP SCH ×3 (01:08→15:20)
[2018-01-14] MEDS ORDERED: 0.9 % Sodium Chloride 500 ML IVC ONE (01:39)
[2018-01-14] MEDS: Doxycycline 100 MG in 0.9 % Sodium Chloride Mini Bag 100 ML IVPB SCH ×2 (05:39→16:50)
[2018-01-14] MEDS: *HR* Enoxaparin 40 MG/0.4 ML SYRINGE SQ SCH (05:39)
[2018-01-14 05:54] LABS: Basophils % 0.4 %; Eosinophils # 0.4 K/mcL (0.0-0.6); Eosinophils % 6.7 %; Hematocrit 32.3 % (37.5-50.1); Hemoglobin 10.3 g/dL (12.9-16.9); Immature Granulocytes % 0.4 % (0-4); Lymphocytes # 0.9 K/mcL (0.6-4.6); Lymphocytes % 15.7 %; Mean Corpuscular HGB Conc 31.9 g/dL (31.6-35.5); Mean Corpuscular Hemoglobin 29.1 pg (28.0-33.3); Mean Corpuscular Volume 91.2 fL (83.0-100.0); Mean Platelet Volume 10.7 fL (9.4-12.4); Monocytes # 0.7 K/mcL (0.0-1.3); Monocytes % 12.7 %; Neutrophils # 3.7 K/mcL (1.6-8.9); Platelet Count 160 K/mcL (140-400); Red Blood Count 3.54 M/mcL (4.19-5.50); Segmented Neutrophils % 64.1 %
[2018-01-14 06:18] LABS: BUN/Creatinine Ratio 22 (6-26); Blood Urea Nitrogen 11 mg/dL (8-23); Calcium 8.8 mg/dL (8.6-10.3); Carbon Dioxide 30 mEq/L (23-29); Chloride 107 mEq/L (98-107); Glucose 87 mg/dL (70-105); Osmolality,Calculated 291 (280-300); Potassium 3.9 mEq/L (3.5-5.1); Sodium 141 mEq/L (136-145); eGFR For African Americans > 60 (> 60); eGFR For Non-African Americans > 60 (> 60)
[2018-01-14] MEDS: Budesonide/Formoterol 160/4.5 MDI IH SCH ×2 (07:53→21:27)
[2018-01-14] MEDS: Gabapentin 300 MG CAPSULE PO SCH ×2 (08:21→21:18)
[2018-01-14] MEDS: *HR* LORazepam 0.5 MG TABLET PO SCH ×3 (08:21→21:18)
--- NOTE | 2018-01-14 08:58 | Pulmonology Progress Note ---
Date of Encounter: 01/14/18 Time of Encounter: 08:45 Assessment and Plan (1) Pneumothorax on left Current Visit: Yes Status: Inactive Patient left-sided pneumothorax is stable less than 1 cm discussed with interventional radiology the pocket disturbance want to put a chest tube for now we will monitor with O2 supplementation see whether pneumothorax resolve or if it progresses we will get a chest tube in. Anatomy of the lung is like that it cannot collapse is normal lung will do up and be one of the reason why his pneumothorax does not gotten bigger or not gotten smaller either. Will monitor . (2) Pneumonia Current Visit: Yes Status: Acute To continue with current regiment of broad-spectrum antibiotics patient is getting better on it clinically. Qualifiers: Pneumonia type: due to unspecified organism Laterality: bilateral Lung location: unspecified part of lung Qualified Code(s): J18.9 - Pneumonia, unspecified organism (3) COPD (chronic obstructive pulmonary disease) Current Visit: Yes Status: Chronic To continue current regimen of bronchodilators doesnt look he is in COPD exacerbation will hold off steroids for now . Qualifiers: COPD type: emphysema Emphysema type: panlobular Qualified Code(s): J43.1 - Panlobular emphysema (4) Metastatic primary lung cancer Current Visit: Yes Status: Chronic Is followed by oncology patient is on IV immunotherapy. Qualifiers: Laterality: unspecified laterality Qualified Code(s): C34.90 - Malignant neoplasm of unspecified part of unspecified bronchus or lung Subjective Principal diagnosis: Secondary spontaneous pneumothorax Interval history: Patient repeat chest x-ray shows stable basilar pneumothoraces less than 1 cm patient still has some pleuritic chest pain but not severe as it was before his presentation to the hospital patient's says is getting better slowly. Patient says the cough and sputum production is lot better denies any fever or chills or any other constitutional symptoms. Objective PUL Vital signs: Last Vital Signs Temp 98 F 01/14/18 07:29 Pulse 81 01/14/18 07:29 Resp 17 01/14/18 07:55 BP 99/59 01/14/18 07:29 Pulse Ox 98 01/14/18 07:55 Auscultation: left: diminished breath sounds Results - Laboratory Findings CBC and BMP: 01/14/18 05:30 01/14/18 05:30 Abnormal lab findings: Abnormal lab results RBC 3.54 M/mcL (4.19-5.50) L 01/14/18 05:30 Hgb 10.3 g/dL (12.9-16.9) L D 01/14/18 05:30 Hct 32.3 % (37.5-50.1) L 01/14/18 05:30 Carbon Dioxide 30 mEq/L (23-29) H 01/14/18 05:30 Creatinine 0.50 mg/dL (0.70-1.30) L 01/14/18 05:30 - Clinical Findings Intake & Output: Intake & Output 01/13/18 01/14/18 01/14/18 23:59 07:59 15:59 Intake Total 200 / 200 510 / 510 Output Total 0 / 0 Balance 200 / 200 510 / 510 Weight 42.1 kg Consult Discharge Plan - Plan Referrals: Wade Bull MD [Primary Care Provider] -
[2018-01-14] MEDS: *HR* HYDROcodone/Acet 10/325 mg TABLET PO PRN ×2 (15:20→21:23)
--- NOTE | 2018-01-14 16:12 | Internal Med Progress Note ---
<Colby Gupta - Last Filed: 01/14/18 17:47> Date of Encounter: 01/14/18 Time of Encounter: 09:00 - Assessment and plan (1) Pneumothorax on left Current Visit: Yes Status: Inactive Assessment and plan: -Secondary pneumothorax with no mediastinal shift in a patient with severe bullous emphysema and bilateral multifocal pneumonia. - pulmonology recommended conservative management with oxygen supplementation unless pneumothorax expands greater than 1-2 cm - Repeat CT scan tomorrow to see resolution of the pneumothorax since it is very small - Patient endorses no sign of worsening SOB, chest pain today -Serial chest x-ray monitoring (2) Metastatic primary lung cancer Current Visit: Yes Status: Chronic Assessment and plan: -patient has a Hx of lung cancer s/p R pneumoactomy (Jul 2016) - he continues to go for his oncology appointment- takes Pembrolizumab - he will continue to see oncology on an outpatient . Qualifiers: Laterality: unspecified laterality Qualified Code(s): C34.90 - Malignant neoplasm of unspecified part of unspecified bronchus or lung (3) COPD (chronic obstructive pulmonary disease) Current Visit: Yes Status: Chronic Assessment and plan: Not in exacerbation at this time, denies SOB, cough or change in sputum colour - with the stable COPD, solumedrol or any other steroids will not be given -Continue home medications -duonebs prn Qualifiers: COPD type: emphysema Emphysema type: panlobular Qualified Code(s): J43.1 - Panlobular emphysema (4) Protein-calorie malnutrition, severe Current Visit: Yes Status: Chronic Assessment and plan: continue home meds Patient and his at the bedside report they follow up with 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 at the 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 Continue supplements and Megace (5) DVT prophylaxis Current Visit: Yes Status: Chronic Assessment and plan: SQ lovenox (6) BPH (benign prostatic hyperplasia) Current Visit: Yes Status: Chronic Assessment and plan: continue home meds Qualifiers: Lower urinary tract symptom presence: symptoms absent Qualified Code(s): N40.0 - Benign prostatic hyperplasia without lower urinary tract symptoms (7) Depression Current Visit: Yes Status: Chronic Assessment and plan: continue home meds Qualifiers: Depression Type: unspecified Qualified Code(s): F32.9 - Major depressive disorder, single episode, unspecified (8) Pneumonia Current Visit: Yes Status: Acute Assessment and plan: -Patient with history of lung cancer on immunotherapy who presented with acute pleuritic chest pain but right apical left pneumothorax and bilateral infiltrates suspicious for multiple focal pneumonia -Blood culture pending - Patient encdorses no worsening SOB, is not in any respiratory distress -Physical exam showed no egophony, or tactile fremitus or wheezing -Started on antibiotics-vancomycin/cefepime/doxycycline -Oxygen supplementation when necessary -Continue to monitor. Qualifiers: Pneumonia type: due to unspecified organism Laterality: bilateral Lung location: unspecified part of lung Qualified Code(s): J18.9 - Pneumonia, unspecified organism - Time Spent With Patient Total time spent is greater than 50% in coordination of care (as documented) at patient's floor/unit and/or counseling patient: - Subjective Interval history: No acute events overnight. PAtient endorses no acute SOB, progressively increasing chest pain, confusion or dizziness. he says his pleuritic chest pain is better than yesterday. Pulmonology saw him and since the pneumothroax is only 1-2 cm, they recommend conservative management. He will have his chest CT repeated tomorrow to monitor resolution of pneumothroax . Since the patient has a Hx of being on steroids s/p lung cancer , we are going to evaluate his serum cortisol level to rule out any signs of adrenal insufficiency. on physical exam he doesn't seem to be showing any signs of dehydration, dizziness, lightheadedness although his BP is in systolic 90s. - Constitutional Vitals: Temp Pulse Resp BP Pulse Ox 98.2 F 91 16 94/61 98 01/14/18 10:56 01/14/18 10:56 01/14/18 10:56 01/14/18 10:56 01/14/18 10:56 General appearance: Present: cachectic, mild distress, A&O X 3, pleasant - Head Head exam: Present: atraumatic, normal inspection, normocephalic - Respiratory Additional comments: decreased breath sounds, reduced pleuritic pain on inspiration, no rales, wheezing or ronchi, - Cardiovascular Additional comments: RRR, no gallops,murmurs or rubs - GI/Abdominal Additional comments: - soft, non-tender, non-distended , no hepatomegaly or spleomegaly Internal Medicine: Result - Labs CBC & Chem 7: 01/14/18 05:30 01/14/18 05:30 Labs: Short CBC 01/14/18 Range/Units 05:30 WBC 5.7 (4.3-11.1) K/mcL Hgb 10.3 L D (12.9-16.9) g/dL Hct 32.3 L (37.5-50.1) % Plt Count 160 (140-400) K/mcL Neutrophils # 3.7 (1.6-8.9) K/mcL BMP 01/14/18 05:30 Sodium 141 Potassium 3.9 Chloride 107 Carbon Dioxide 30 H BUN 11 Creatinine 0.50 L Glucose 87 Calcium 8.8 - Impressions Impressions Chest X-Ray 01/13/18 15:02 IMPRESSION: 1. No significant change. 2. Redemonstration of the left greater than the right patchy airspace disease, concerning for pneumonia. 3. Emphysema with left oval bullous disease. 4. Tiny left upper lobe pneumothorax. D/ / 01/13/2018 16:15:01 Glen Merino MD / [email or web address] Interpreting Provider: Glen Merino MD Chest X-Ray 01/13/18 16:36 IMPRESSION: Unchanged trace left-sided pneumothorax. D/ / Remy Cervantes MD / Remy Cervantes MD Interpreting Provider: Remy Cervantes MD Chest X-Ray 01/14/18 08:00 IMPRESSION: Stable mild left lateral pneumothorax. D/ / 01/14/2018 07:48:02 Bashir Ramirez MD / [email or web address] Interpreting Provider: Bashir Ramirez MD Consult Discharge Plan - Plan Referrals: Wade Bull MD [Primary Care Provider] - <Brandin Alberto - Last Filed: 01/14/18 19:33> Date of Encounter: 01/14/18 - Assessment and plan (1) Metastatic primary lung cancer Current Visit: Yes Status: Chronic Qualifiers: Laterality: right Qualified Code(s): C34.91 - Malignant neoplasm of unspecified part of right bronchus or lung (2) COPD (chronic obstructive pulmonary disease) Current Visit: Yes Status: Chronic Qualifiers: COPD type: emphysema Emphysema type: panlobular Qualified Code(s): J43.1 - Panlobular emphysema (3) Protein-calorie malnutrition, severe Current Visit: Yes Status: Chronic (4) DVT prophylaxis Current Visit: Yes Status: Chronic (5) BPH (benign prostatic hyperplasia) Current Visit: Yes Status: Chronic Qualifiers: Lower urinary tract symptom presence: symptoms absent Qualified Code(s): N40.0 - Benign prostatic hyperplasia without lower urinary tract symptoms (6) Depression Current Visit: Yes Status: Chronic Qualifiers: Depression Type: unspecified Qualified Code(s): F32.9 - Major depressive disorder, single episode, unspecified (7) Pneumothorax on left Current Visit: Yes Status: Inactive (8) Pneumonia Current Visit: Yes Status: Suspected Qualifiers: Pneumonia type: due to other aerobic Gram-negative bacteria Laterality: bilateral Lung location: lower lobe of lung Qualified Code(s): J15.6 - Pneumonia due to other Gram-negative bacteria (9) Spontaneous pneumothorax Current Visit: Yes Status: Acute - Time Spent With Patient Total time spent is greater than 50% in coordination of care (as documented) at patient's floor/unit and/or counseling patient: - Constitutional Vitals: Temp Pulse Resp BP Pulse Ox 98.2 F 86 18 108/67 95 01/14/18 10:56 01/14/18 17:06 01/14/18 17:06 01/14/18 17:06 01/14/18 17:06 Internal Medicine: Result - Labs CBC & Chem 7: 01/14/18 05:30 01/14/18 05:30 Labs: Short CBC 01/14/18 Range/Units 05:30 WBC 5.7 (4.3-11.1) K/mcL Hgb 10.3 L D (12.9-16.9) g/dL Hct 32.3 L (37.5-50.1) % Plt Count 160 (140-400) K/mcL Neutrophils # 3.7 (1.6-8.9) K/mcL BMP 01/14/18 05:30 Sodium 141 Potassium 3.9 Chloride 107 Carbon Dioxide 30 H BUN 11 Creatinine 0.50 L Glucose 87 Calcium 8.8 - Impressions Impressions Chest X-Ray 01/14/18 08:00 IMPRESSION: Stable mild left lateral pneumothorax. D/ / 01/14/2018 07:48:02 Bashir Ramirez MD / [email or web address] Interpreting Provider: Bashir Ramirez MD - Attending Attestation I examined this patient and my medical decision-making was reviewed with the Resident Physician on 01/14/18. I agree with the documented findings, disposition and treatment plan as described except to the extent set forth below. Mr Benavidez is currently admitted for L pneumothorax. He remains moderate to high risk due to potential for worsening clinical and respiratory status. Mr Benavidez is resting at this time. PTX about the same on CXR. No worsening of symptoms. No fever or chills. Appetite fair. Exam alert Comfortable Mucus membranes dry Heart not tachy Lungs diminished Abd soft I/P 1. PTX 2. Bullous emphysema 3. Hx lung cancer Further diagnoses and plan as above Repeat CT tomorrow.
[2018-01-14] MEDS: Mirtazapine 15 MG TABLET PO SCH (16:50)
[2018-01-15] MEDS ORDERED: 0.9 % Sodium Chloride 500 ML IVC ONE ×3 (00:36→04:17)
[2018-01-15] MEDS: Cefepime HCl 1,000 MG in Water for inj. (sterile) 20 ML 10 ML IVP SCH ×2 (00:45→08:25)
[2018-01-15 05:10] LABS: Basophils % 0.2 %; Eosinophils # 0.5 K/mcL (0.0-0.6); Eosinophils % 7.5 %; Hematocrit 27.9 % (37.5-50.1); Hemoglobin 8.9 g/dL (12.9-16.9); Immature Granulocytes % 0.2 % (0-4); Lymphocytes % 16.1 %; Mean Corpuscular HGB Conc 31.9 g/dL (31.6-35.5); Mean Corpuscular Hemoglobin 28.9 pg (28.0-33.3); Mean Corpuscular Volume 90.6 fL (83.0-100.0); Mean Platelet Volume 10.2 fL (9.4-12.4); Monocytes # 0.6 K/mcL (0.0-1.3); Monocytes % 10.6 %; Neutrophils # 3.9 K/mcL (1.6-8.9); Platelet Count 156 K/mcL (140-400); Red Blood Count 3.08 M/mcL (4.19-5.50); Red Cell Distribution Width 14.5 % (11.5-14.5); Segmented Neutrophils % 65.4 %
[2018-01-15 05:27] LABS: BUN/Creatinine Ratio 29 (6-26); Blood Urea Nitrogen 14 mg/dL (8-23); Calcium 8.4 mg/dL (8.6-10.3); Carbon Dioxide 27 mEq/L (23-29); Chloride 111 mEq/L (98-107); Glucose 107 mg/dL (70-105); Osmolality,Calculated 295 (280-300); Potassium 3.9 mEq/L (3.5-5.1); Sodium 142 mEq/L (136-145); eGFR For African Americans > 60 (> 60); eGFR For Non-African Americans > 60 (> 60)
[2018-01-15] MEDS: *HR* Enoxaparin 40 MG/0.4 ML SYRINGE SQ SCH (06:10)
[2018-01-15] MEDS: Doxycycline 100 MG in 0.9 % Sodium Chloride Mini Bag 100 ML IVPB SCH (06:10)
[2018-01-15] MEDS: *HR* HYDROcodone/Acet 10/325 mg TABLET PO PRN (06:17)
[2018-01-15 06:49] VITALS: BP 91/57
[2018-01-15] MEDS: Budesonide/Formoterol 160/4.5 MDI IH SCH (07:40)
[2018-01-15] MEDS: *HR* LORazepam 0.5 MG TABLET PO SCH (08:25)
[2018-01-15] MEDS: Gabapentin 300 MG CAPSULE PO SCH (08:25)
--- NOTE | 2018-01-15 09:33 | Pulmonology Progress Note ---
Date of Encounter: 01/15/18 Time of Encounter: 09:15 Assessment and Plan (1) Pneumothorax on left Status: Inactive Patient left-sided pneumothorax is stable less than 1 cm discussed with interventional radiology the pocket disturbance want to put a chest tube for now we will monitor with O2 supplementation see whether pneumothorax resolve or if it progresses we will get a chest tube in. Anatomy of the lung is like that it cannot collapse is normal lung will do up and be one of the reason why his pneumothorax does not gotten bigger or not gotten smaller either. Will monitor . 01/15 Patient has left sided pneumothorax almost resolved with very minimal slight rim asked him to exert to see whether pleuritic chest pain comes back if he is asymptomatic he can be discharged home . Told him if there is return of chest pain and shortness of breadth asked him to come to the ER immediately . (2) Pneumonia Status: Suspected To continue with current regiment of broad-spectrum antibiotics patient is getting better on it clinically. Will need 4-6 weeks of imaging to document resolution of the consolidation since patient has metastatic adenocarcinoma of lung it can part of recurrence. Qualifiers: Pneumonia type: due to other aerobic Gram-negative bacteria Laterality: bilateral Lung location: lower lobe of lung Qualified Code(s): J15.6 - Pneumonia due to other Gram-negative bacteria (3) COPD (chronic obstructive pulmonary disease) Status: Chronic To continue current regimen of bronchodilators doesnt look he is in COPD exacerbation will hold off steroids for now . to send home on his home regimen of bronchodilators Qualifiers: COPD type: emphysema Emphysema type: panlobular Qualified Code(s): J43.1 - Panlobular emphysema (4) Metastatic primary lung cancer Status: Chronic Is followed by oncology patient is on IV immunotherapy. Patient is going to follow up with oncology next week . Qualifiers: Laterality: right Qualified Code(s): C34.91 - Malignant neoplasm of unspecified part of right bronchus or lung Subjective Principal diagnosis: Secondary spontaneous pneumothorax Interval history: Patient repeat chest x-ray shows stable basilar pneumothoraces less than 1 cm patient still has some pleuritic chest pain but not severe as it was before his presentation to the hospital patient's says is getting better slowly. Patient says the cough and sputum production is lot better denies any fever or chills or any other constitutional symptoms. 01/15 patient is doing well says that his chest pain has almost completely resolved asked him to walk around and see whether his chest pain comes back. Patient denies any fever or chills , any other constitutional symptoms . Objective PUL Vital signs: Last Vital Signs Temp 97.6 F 01/15/18 03:54 Pulse 77 01/15/18 06:48 Resp 17 01/15/18 07:42 BP 91/57 01/15/18 06:48 Pulse Ox 97 01/15/18 07:42 Auscultation: left: diminished breath sounds (slightly diminished ) Results - Laboratory Findings CBC and BMP: 01/15/18 04:55 01/15/18 04:55 Abnormal lab findings: Abnormal lab results RBC 3.08 M/mcL (4.19-5.50) L 01/15/18 04:55 Hgb 8.9 g/dL (12.9-16.9) L 01/15/18 04:55 Hct 27.9 % (37.5-50.1) L 01/15/18 04:55 Chloride 111 mEq/L (98-107) H 01/15/18 04:55 Creatinine 0.48 mg/dL (0.70-1.30) L 01/15/18 04:55 BUN/Creatinine Ratio 29 (6-26) H 01/15/18 04:55 Glucose 107 mg/dL (70-105) H 01/15/18 04:55 Calcium 8.4 mg/dL (8.6-10.3) L 01/15/18 04:55 - Clinical Findings Intake & Output: Intake & Output 01/14/18 01/15/18 01/15/18 23:59 07:59 15:59 Intake Total 460 / 460 510 / 510 Output Total 0 / 0 0 / 0 Balance 460 / 460 510 / 510 Weight 43 kg Consult Discharge Plan - Plan Referrals: Wade Bull MD [Primary Care Provider] - 01/24/18 9:45 am Niya Torres MD [Partnered Physician] - 02/21/18 3:15 pm Prescriptions: Amoxicillin/Clavulanate [Augmentin] 875 mg PO BIDWM #8 tablet Doxycycline Hyclate 100 mg PO BIDWM #22 capsule
--- NOTE | 2018-01-15 11:38 | Discharge Summary ---
<Ben Burroughs - Last Filed: 01/15/18 13:30> Date of Encounter: 01/15/18 - Discharge Diagnosis (1) Metastatic primary lung cancer Status: Chronic Qualifiers: Laterality: right Qualified Code(s): C34.91 - Malignant neoplasm of unspecified part of right bronchus or lung (2) COPD (chronic obstructive pulmonary disease) Status: Chronic Qualifiers: COPD type: emphysema Emphysema type: panlobular Qualified Code(s): J43.1 - Panlobular emphysema (3) Protein-calorie malnutrition, severe Status: Chronic (4) BPH (benign prostatic hyperplasia) Status: Chronic Qualifiers: Lower urinary tract symptom presence: symptoms absent Qualified Code(s): N40.0 - Benign prostatic hyperplasia without lower urinary tract symptoms (5) Depression Status: Chronic Qualifiers: Depression Type: unspecified Qualified Code(s): F32.9 - Major depressive disorder, single episode, unspecified (6) Pneumonia Status: Suspected Qualifiers: Pneumonia type: due to other aerobic Gram-negative bacteria Laterality: bilateral Lung location: lower lobe of lung Qualified Code(s): J15.6 - Pneumonia due to other Gram-negative bacteria (7) Spontaneous pneumothorax Status: Acute Hospital course: Mr. Benavidez is a 72 year old male - Time Spent with Patient Total time spent providing and/or coordinating discharge services: - Discharge Medications Prescriptions: Amoxicillin/Clavulanate [Augmentin] 875 mg PO BIDWM #8 tablet Doxycycline Hyclate 100 mg PO BIDWM #22 capsule Home Medications: Budesonide/Formoterol 160/4.5 [Symbicort 160/4.5] 2 puff IH BIDR 10/29/17 [ History] Gabapentin [Neurontin] 300 mg PO HS 10/29/17 [History] HYDROcodone/Acet 10/325 mg [[place]ves 10-325 mg] 1 tab PO Q6HR PRN 10/29/17 [History ] Omeprazole [PriLOSEC] 20 mg PO DAILY 11/13/17 [History] LORazepam [Ativan] 0.5 mg PO TID 12/04/17 [History] Promethazine [Phenergan] 25 mg PO Q6HR PRN #60 tablet 12/04/17 [Rx] Dronabinol [Marinol] 5 mg PO BID 01/13/18 [History] Ipratropium Neb [Atrovent Neb] 0.5 mg IH TID 01/13/18 [History] Megestrol Acetate [Megace] 40 mg PO DAILY 01/13/18 [History] Mirtazapine [Remeron] 15 mg PO QPM 01/13/18 [History] Pembrolizumab [Keytruda] 3 mg IVP Q3W 01/13/18 [History] Lactobacillus Acidophilus [Acidophilus] 1 cap PO DAILY 01/14/18 [History] Amoxicillin/Clavulanate [Augmentin] 875 mg PO BIDWM #8 tablet 01/15/18 [Rx] Doxycycline Hyclate 100 mg PO BIDWM #22 capsule 01/15/18 [Rx] Allergies/Adverse Reactions: 3 Allergy/AdvReac Type Severity Reaction Status Date / Time aspirin [From Percodan] AdvReac Hallucinati Verified 12/04/17 13:54 ng Oxycodone [From Percocet] AdvReac Hallucinati Verified 12/04/17 13:54 ng Date of admission: 01/13/18 16:54 Primary care physician: Wade Bull MD Consults: 01/13/18 15:04 Consult to Pulmonology [CONS] Routine Consulting Provider: [facility] Reason for Consult: Pneumothorax, bilateral PNA Call Completed: Yes - Constitutional Vitals: Temp Pulse Resp BP Pulse Ox 97.6 F 77 17 91/57 97 01/15/18 03:54 01/15/18 06:48 01/15/18 07:42 01/15/18 06:48 01/15/18 07:42 - Patient Status Disposition: Home, Self-Care Condition: Good - Discharge Instructions Follow Up With: Wade Bull MD [Primary Care Provider] - 01/24/18 9:45 am Niya Torres MD [Partnered Physician] - 02/21/18 3:15 pm <Colby Gupta - Last Filed: 01/15/18 16:48> - NOTES TO OUTPATIENT PROVIDER Notes to Outpatient Provider: - continue for a total of 11 days of Augmentin and Doxycycline. - f/u with Dr. Stevens (out-patient) after 4-6 weeks. - Should there be any SOB please go to the ED Orders not resulted at time of discharge: Pending orders 01/15/18 11:30 Vancomycin,Trough Timed Date of Encounter: 01/15/18 Time of Encounter: 10:40 - Discharge Diagnosis (1) Metastatic primary lung cancer Priority: Secondary Status: Chronic Qualifiers: Laterality: right Qualified Code(s): C34.91 - Malignant neoplasm of unspecified part of right bronchus or lung (2) COPD (chronic obstructive pulmonary disease) Priority: Secondary Status: Chronic Qualifiers: COPD type: emphysema Emphysema type: panlobular Qualified Code(s): J43.1 - Panlobular emphysema (3) Protein-calorie malnutrition, severe Priority: Secondary Status: Chronic (4) BPH (benign prostatic hyperplasia) Priority: Secondary Status: Chronic Qualifiers: Lower urinary tract symptom presence: symptoms absent Qualified Code(s): N40.0 - Benign prostatic hyperplasia without lower urinary tract symptoms (5) Depression Priority: Secondary Status: Chronic Qualifiers: Depression Type: unspecified Qualified Code(s): F32.9 - Major depressive disorder, single episode, unspecified (6) Pneumonia Priority: Secondary Status: Suspected Qualifiers: Pneumonia type: due to other aerobic Gram-negative bacteria Laterality: bilateral Lung location: lower lobe of lung Qualified Code(s): J15.6 - Pneumonia due to other Gram-negative bacteria (7) Spontaneous pneumothorax Priority: Primary Status: Acute Hospital course: Mr. Benavidez is a 72 year old male with a PMHx of recurrent non-small cell lung cancer s/p right penumectomy (Jul 2016) and COPD, who was admitted to the [facility] medicine service service because of right pleuritic chest pain . He was found to have a left sided pneumothroax. His CXR also showed l eft greater than the right patchy airspace disease, concerning for hospital aquired pneumonia. Due to the small size of the pneumothorax (1-2 mm), the radio script writer decided to manage his condition conservatively by giving supplemental oxygen. His pneumonia was treated with Abx (Doxycycline, Vancomycin and Cefempime). His SOB, pleuritic chest pain got better by day [address] of the chest on 01/15 showed Improved left-sided pneumothorax, which has nearly completely resolved. Patient is being sent home on 11 more days of Abx (Augmentin and Doxycycline) . He should follow up with the Brake Tester in 4-6 weeks from now . Discharge discussed with: patient, family - Time Spent with Patient Total time spent providing and/or coordinating discharge services: Date of admission: 01/13/18 16:54 Primary care physician: Wade Bull MD Consults: 01/13/18 15:04 Consult to Pulmonology [CONS] Routine Consulting Provider: [facility] Reason for Consult: Pneumothorax, bilateral PNA Call Completed: Yes - Constitutional Vitals: Temp Pulse Resp BP Pulse Ox 97.6 F 77 17 91/57 97 01/15/18 03:54 01/15/18 06:48 01/15/18 07:42 01/15/18 06:48 01/15/18 07:42 General appearance: Present: cachectic, mild distress, A&O X 3, pleasant - Head Head exam: Present: atraumatic, normal inspection, normocephalic - Respiratory Additional comments: breathing back to baseline, reduced pleuritic pain on inspiration, no rales, wheezing or ronchi - Cardiovascular Additional comments: RRR, no gallops,murmurs or rubs - GI/Abdominal Additional comments: soft, non-tender, non-distended , no hepatomegaly or splenomegaly - Extremities Exam Additional comments: ROM appropriate for her age, pulses symmetrical bilaterally, no pedal edema appreciated - Psychiatric Additional comments: good mentation, no suicidal or homicidal ideation. - Patient Status Overall status at discharge: patient is progressing back to baseline - Diet and Activity Activity: resume usual activities as tolerated Diet: low salt diet <Brandin Alberto - Last Filed: 01/15/18 17:47> Date of Encounter: 01/15/18 - Discharge Diagnosis (1) Metastatic primary lung cancer Status: Chronic Qualifiers: Laterality: right Qualified Code(s): C34.91 - Malignant neoplasm of unspecified part of right bronchus or lung (2) COPD (chronic obstructive pulmonary disease) Status: Chronic Qualifiers: COPD type: emphysema Emphysema type: panlobular Qualified Code(s): J43.1 - Panlobular emphysema (3) Protein-calorie malnutrition, severe Status: Chronic (4) BPH (benign prostatic hyperplasia) Status: Chronic Qualifiers: Lower urinary tract symptom presence: symptoms absent Qualified Code(s): N40.0 - Benign prostatic hyperplasia without lower urinary tract symptoms (5) Depression Status: Chronic Qualifiers: Depression Type: unspecified Qualified Code(s): F32.9 - Major depressive disorder, single episode, unspecified (6) Pneumonia Status: Suspected Qualifiers: Pneumonia type: due to other aerobic Gram-negative bacteria Laterality: bilateral Lung location: lower lobe of lung Qualified Code(s): J15.6 - Pneumonia due to other Gram-negative bacteria (7) Spontaneous pneumothorax Status: Acute Hospital course: Mr. Benavidez is a 72 year old male - Time Spent with Patient Total time spent providing and/or coordinating discharge services: 37min Date of admission: 01/13/18 16:54 Primary care physician: Wade Bull MD Consults: 01/13/18 15:04 Consult to Pulmonology [CONS] Routine Consulting Provider: [facility] Reason for Consult: Pneumothorax, bilateral PNA Call Completed: Yes - Constitutional Vitals: Temp Pulse Resp BP Pulse Ox 97.6 F 77 17 91/57 97 01/15/18 03:54 01/15/18 06:48 01/15/18 07:42 01/15/18 06:48 01/15/18 07:42 - Attending Attestation I examined this patient and my medical decision-making was reviewed with the Resident Physician on 01/15/18. I agree with the documented findings, disposition and treatment plan as described except to the extent set forth below. Mr Benavidez has been admitted for acute PTX. He has had improvement on CT. He is also being treated for pneumonia. He has been seen by pulmonary and will follow up as outpatient. He is now afebrile and ready for discharge. He will complete course of PO abx. Exam alert Comfortable Mucus membranes dry Heart reg No wheeze abd soft Plan D/C home today Complete course of abx.
== END 2018-01-15 14:08 | disposition home or self-care (01) | DRG 190 ==
LOC: 2NENU → SUATTDRO 16:54
PROVIDERS: ADMIT Internal Medicine; ATTEND Internal Medicine